=== PATIENT | female | born 1955 | race Caucasian/White ===

== ENCOUNTER 2025-02-05 11:48 | Inpatient (IN) ==
--- NOTE | 2025-02-05 12:09 | Emergency Department Note ---
Impression & Plan Dyspnea on exertion, Transaminitis ED Provider Note HISTORY OF PRESENT ILLNESS: Patient is a 69-year-old female presenting with general malaise and shortness of breath. Patient reports that 2 weeks ago she started feeling very fatigued and rundown. She was seen in the emergency department 4 days ago and diagnosed with what was presumed to be a tickborne illness and started prophylactically on doxycycline. Patient reports she has been taking her medications and not getting any better. She reports that a few days ago she attempted to walk on the treadmill at the gym but became very short of breath and only lasted for about 11 minutes. She reports her heart rate got up into the 130s. States that she gets very short of breath with minimal amounts of exertion. She is not on any anticoagulation or antiplatelet therapy. Denies any DVT or PE history. Denies any recent cough. She reports some subjective fevers at home over the last few days, but has not had any measured fevers like she did a week ago. Denies any abdominal pain, nausea or vomiting. She does report a decreased appetite and has not really had much to eat or drink in the last 3 to 4 days secondary to no appetite. Denies any recent sick contact exposures. She reports that she does have some anterior chest pressure that has been intermittent. Denies any lower extremity edema. Patient is on methotrexate for history of psoriatic arthritis. ROS: as above PHYSICAL EXAM: Constitutional: Patient appears in no acute distress. HENT: Head: Normocephalic and atraumatic. Eyes: EOMI, PERRL Mouth/Throat: Mucous membranes moist. Neck: Trachea midline. Neck supple. Cardiovascular: Tachycardic with regular rhythm. No murmurs, rubs or gallops. Intact distal pulses. Pulmonary/Chest: No respiratory distress. Breath sounds clear and equal bilaterally. No wheezes or rales. Abdominal: Abdomen soft, no tenderness, rebound or guarding. Musculoskeletal: No edema, tenderness or deformity noted. Skin: Warm and dry. No rash, erythema, pallor or cyanosis Psychiatric: Appropriate mood and affect for situation. Neurological: Alert and keenly responsive. CN II-XII grossly intact, moving all extremities equally and fully. MDM: - Vitals signs showed tachycardia - History obtained via patient. History as above. - Chronic conditions affecting care: Psoriatic arthritis - Differential diagnoses include, but are not limited to: Congestive heart failure; acute coronary syndrome; COPD/asthma exacerbation; pulmonary edema; pulmonary embolism; pneumonia; pneumothorax; viral syndrome - Order placed for continuous cardiac monitoring. At this time, monitor showed rate of 92 bpm with normal sinus rhythm, per my interpretation. - External medical records reviewed. Primary care visit note from [facility] visit from today was reviewed. Patient was seen for an ER follow- up after being seen in the ER on 02/01/2025 for fevers, chills and dehydration and chest pain. She was started on doxycycline 100 mg twice daily for presumed tickborne illness. However, it has been 5 days and she is not feeling any better. She still feeling generally ill. Reportedly complaining of dyspnea on exertion and chest pain. Temperature in clinic was 100. She reported that her heart rate was in the 140s at home. Given her reported low blood pressure in clinic which was 88/54 and her heart rate of 116 bpm, they referred her to the emergency department. - EKG image interpreted by myself showed normal sinus rhythm. Rate tachycardic with a rate of 111 bpm. QT 324. No acute ischemic changes. - Laboratory workup interpreted by myself showed normal WBC; normal PT/INR; elevated D dimer (2350); stable electrolytes; transaminitis (AST 105; ALT 124); normal troponin; normal BNP; normal procalcitonin - Lyme negative - CXR image reviewed by myself is negative for pneumonia, per my interpretation - Patient has a history of gastric bypass so she does not take any NSAIDs. She reports her last dose of Tylenol was 2 days ago. However, given her transaminitis, hepatitis panel and Tylenol level was added to the blood work. - Patient given 2L NS in ER and 4 mg IV zofran for nausea that she developed in ER. - CT PE negative for PE or pneumonia. However, noted to have some interlobar septal thickening concerning for atelectasis versus some pulmonary edema. - Discussed results with patient. Unclear etiology for symptoms at this time. However, patient expresses concern that she is feeling just as bad as she did last week and is not getting any better. 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 Will admit to hospital service for further evaluation and management. - Discussion was had with pillowcase turner about patient's case and need for admission - Hospitalist consulted for admission - Patient admitted to [facility] service for further evaluation and management. ASSESSMENT AND PLAN: Diagnosis: Dyspnea on exertion; transaminitis Plan: admit Past Med/Surg History Problem List (Updated 02/05/25 @ 14:35 by Julieta Baez MD) Transaminitis (Acute) Dyspnea on exertion (Acute) Leukopenia (Acute) Transaminitis (Acute) Acute dehydration (Acute) Dizziness (Acute) Acute dyspnea (Acute) Fever (Acute) Dysuria Recurrent UTI Urinary symptom or sign Encounter for pre-operative examination Medical History Raynaud phenomenon History of anesthesia problem hypotension with colonoscopy attributed to propofol per pt, denies additional issues with subsequent surgeries/propofol administration History of GI bleed 2017>FOUND TO BE FROM POLYPS FOUND DURING COLONOSCOPY Hx of seasonal allergies Hyperlipidemia Non-specific colitis HX Hx of colonic polyps Anxiety Psoriatic arthritis Osteoporosis Surgical History S/P panniculectomy History of lumbar laminectomy Hx of laparoscopy EXPLORATORY Hx laparoscopic cholecystectomy History of open reduction and internal fixation (ORIF) procedure RT. WRIST Personal hx of gastric bypass History of esophagogastroduodenoscopy (EGD) Hx of colonoscopy Social History Smoking Status: Former smoker Second Hand Exposure: Yes (HX); Do You Dip or Chew Tobacco: No; Hx Alcohol Use: Yes Hx Substance Use: Yes Last Used Substance Other:: 12/23/22; USES TO HELP WITH SLEEP Preferred Language: Vietnamese Communication Ability: Effective Architect Internship Required: No Beliefs That Will Affect Care: None Current Living Situation: Spouse Feels Safe at Home: Yes Assistive Devices: Glasses Allergies Allergies Allergy/AdvReac Type Severity Reaction Status Date / Time aspirin Allergy Severe Anaphylaxis Verified 01/29/25 13:38 homosalate Allergy FACIAL Verified 01/29/25 13:38 SWELLING NSAIDS (Non-Steroidal Allergy HX GASTRIC Verified 01/29/25 13:38 Anti-Inflamma BYPASS-ADVISED AGAINST TAKING Penicillins Allergy Rash Verified 01/29/25 13:38 thimerosal Allergy CONTACT Verified 01/29/25 13:38 DERMATITIS Home Meds Home Medications Medication Instructions Recorded Confirmed Vitamin D3 1 cap PO HS 12/24/22 02/05/25 cetirizine 10 mg capsule 10 mg PO 12/24/22 02/05/25 folic acid 1 mg tablet 1 mg PO 12/24/22 02/05/25 rosuvastatin 10 mg tablet 10 mg PO 12/24/22 02/05/25 apremilast 30 mg tablet (Otezla) 30 mg PO BID 06/18/24 02/05/25 methotrexate (PF) 15 mg/0.4 mL 15 mg subcut UD 01/29/25 02/05/25 subcutaneous auto-injector ondansetron 4 mg disintegrating 4 mg PO Q8H 01/29/25 02/05/25 tablet methotrexate sodium 2.5 mg tablet 2.5 mg PO DIRECTED 02/01/25 02/05/25 Previous Rx's Medication Instructions Recorded doxycycline hyclate 100 mg tablet 100 mg PO Q12H 10 days #20 tabs 02/01/25 Results & Data (ED) Vital Signs Vital Signs - 24 hr 02/05/25 11:51 02/05/25 12:07 02/05/25 12:07 Temperature 37.5 C Temperature Source Oral Pulse Rate 112 H Pulse Rate [Apical] Respiratory Rate 17 Respiratory Effort / Characteristics Non-Labored Spontaneous Non-Labored Spontaneous SOB on Exertion Respiratory Depth Normal Normal Respiratory Pattern Regular Blood Pressure 124/82 Blood Pressure [Right Arm] Blood Pressure Mean 96 Blood Pressure Mean [Right Arm] Blood Pressure Position Sitting Blood Pressure Position [Right Arm] Pulse Oximetry 98 96 Oxygen Delivery Method Room Air Room Air Room Air Sepsis Recent Fever Within 48 Hours No Sepsis New/Unexplained Change in Mental Status N/A Sepsis Action Taken by Nursing No Action Required 02/05/25 12:07 02/05/25 12:07 02/05/25 12:28 Temperature Temperature Source Pulse Rate 109 H 101 H Pulse Rate [Apical] 107 H Respiratory Rate 20 15 Respiratory Effort / Characteristics Non-Labored Spontaneous Respiratory Depth Normal Respiratory Pattern Regular Blood Pressure Blood Pressure [Right Arm] 107/73 Blood Pressure Mean Blood Pressure Mean [Right Arm] 84 Blood Pressure Position Blood Pressure Position [Right Arm] Semi-fowlers Pulse Oximetry 95 95 Oxygen Delivery Method Room Air Sepsis Recent Fever Within 48 Hours Sepsis New/Unexplained Change in Mental Status Sepsis Action Taken by Nursing 02/05/25 13:25 02/05/25 14:26 Temperature Temperature Source Pulse Rate Pulse Rate [Apical] 90 95 H Respiratory Rate 19 16 Respiratory Effort / Characteristics Non-Labored Spontaneous Respiratory Depth Normal Normal Respiratory Pattern Regular Blood Pressure Blood Pressure [Right Arm] 99/55 L 111/61 Blood Pressure Mean Blood Pressure Mean [Right Arm] 69 77 Blood Pressure Position Blood Pressure Position [Right Arm] Semi-fowlers Semi-fowlers Pulse Oximetry 99 96 Oxygen Delivery Method Room Air Room Air Sepsis Recent Fever Within 48 Hours Sepsis New/Unexplained Change in Mental Status Sepsis Action Taken by Nursing Laboratory Data 02/05/25 12:18 02/05/25 12:18 Lab Results 02/05/25 02/05/25 Range/Units 12:18 12:30 WBC 8.14 (4.8-10.8) K/ul RBC 4.45 (4.20-5.40) M/uL Hgb 13.1 (12.0-16.0) g/dl Hct 39.6 (37.0-47.0) % MCV 89.0 (80.0-100.0) fL MCH 29.4 (25.0-34.0) pg MCHC 33.1 (32.0-36.0) g/dL RDW Std Deviation 44.3 (36.4-46.3) fL RDW Coeff of Agnes 13.6 (11.5-14.5) % Plt Count 231 (130-400) K/uL MPV 10.2 (9.4-12.4) fL Neutrophils % (Manual) 20 % Lymphocytes % (Manual) 16 % Reactive Lymphs % (Man) 56 % Monocytes % (Manual) 4 % Eosinophils % (Manual) 3 % Basophils % (Manual) 1 % Neutrophils # (Manual) 1.63 (1.40-6.50) K/uL Total Absolute Neuts 1.63 (1.4-6.5) K/uL Lymphocytes # (Manual) 1.30 (1.2-3.4) K/uL Reactive Lymphs # 4.56 K/uL Total Abs Lymphocytes 5.86 H (1.2-3.4) K/uL Monocytes # (Manual) 0.33 (0.11-0.59) K/uL Eosinophils # (Manual) 0.24 (0-0.50) K/uL Basophils # (Manual) 0.08 (0-0.2) K/uL Blood Smear Review Toxic Vacuolation 1+ PT 11.5 (9.0-12.0) Seconds INR 1.1 (0.9-1.1) D-Dimer 2350 H* (0-500) ug/L FEU Sodium 136 (136-145) mmol/L Potassium 3.5 (3.5-5.1) mmol/L Chloride 105 (98-107) mmol/L Carbon Dioxide 25 (21-32) mmol/L Anion Gap 6 (3-11) BUN 12 (6-23) mg/dl Creatinine 0.77 (0.6-1.2) mg/dl Est Cr Clr Drug Dosing 48.4 ml/min eGFR 84.49 BUN/Creatinine Ratio 15.6 (10-20) Glucose 104 H (70-99(Fasting)) mg/dl Lactate 1.8 (0.4-2.0) mmol/L Calcium 8.8 (8.6-10.3) mg/dl Magnesium 1.8 (1.7-2.4) mg/dl Total Bilirubin 0.5 (0.2-1.0) mg/dl AST 105 H (13-39) U/L ALT 124 H (7-52) U/L Alkaline Phosphatase 75 (34-104) U/L Troponin I High Sens 4.1 (0-14) pg/ml B-Natriuretic Peptide 20 (0-100) pg/ml Total Protein 7.2 (6.0-8.3) gm/dl Albumin 3.7 (3.4-5.0) gm/dl Globulin 3.5 (2.5-4.0) gm/dl Albumin/Globulin Ratio 1.1 (0.9-2) Procalcitonin 0.26 (0-0.5) ng/ml Anaplasma Smear See Comment Babesia Smear See Comment Lyme Disease Screen Negative (Negative) Administered Medications Discontinued Medications Sodium Chloride (Nss) 2,000 mls @ 999 mls/hr IV .Q2H1M ONE Stop: 02/05/25 14:42 Last Admin: 02/05/25 12:49 Dose: 999 mls/hr Documented By: VIRGINIA Ioversol (Optiray 320 125ml) 112 ml IV ONCE ONE Stop: 02/05/25 13:57 Last Admin: 02/05/25 13:56 Dose: 112 ml Documented By: MATTEO Ondansetron HCl (Ondansetron Inj 2 Mg/Ml 2 Ml Vial) 4 mg IV NOW STA Stop: 02/05/25 12:43 Last Admin: 02/05/25 12:46 Dose: 4 mg Documented By: VIRGINIA Imaging Data Radiologist's Impression: Chest X-Ray 02/05/25 12:01 XR chest 1V portable CLINICAL HISTORY: Dyspnea COMPARISON STUDY: 02/01/2025 FINDINGS: Heart size and pulmonary vasculature are normal. Stable mild elevation of the right hemidiaphragm. No consolidation or pleural effusion. No pneumothorax. IMPRESSION: No acute findings. ACT 112: Negative or not required by law. Electronically signed by: August Back M.D. 02/05/2025 12:33 PM Chest CTA 02/05/25 13:27 CT angio chest PE protocol CT DOSE: 775.91 mGy.cm HISTORY: 69 years-old Female with PE. Acute shortness of breath TECHNIQUE: Multiple CTA images of the chest were obtained after the intravenous administration of 112 ml Optiray. Coronal and sagittal MIPS were obtained from the axial data set and were submitted for review. All measurements were obtained according to NASCET criteria. A dose lowering technique was utilized adhering to the principles of ALARA. COMPARISON: Chest radiograph same day FINDINGS: CTA: The heart is upper limits of normal in size. Mild coronary artery calcifications. No pericardial effusion. No thoracic aortic aneurysm or dissection. No pulmonary emboli identified. CT CHEST: No thyroid nodule. Subcentimeter mediastinal and hilar lymph nodes are likely physiologic. No pneumothorax, pleural effusion, or focal airspace consolidation. Intralobular septal thickening with mild intermixed groundglass densities. 5 mm fissural nodule on image 127 series 4 within the right midlung, likely a lymph node. Hepatic steatosis. Cholecystectomy with postoperative changes of the stomach. No acute fracture. IMPRESSION: 1. No pulmonary emboli. 2. No lobar airspace consolidation typical for pneumonia. No pleural effusion. 3. Intralobular septal thickening with intermixed bilateral groundglass densities suggestive of atelectasis. A component of mild interstitial pulmonary edema may also be present. 4. Hepatic steatosis. ACT 112: Negative or not required by law. The above report was generated using voice recognition software. It may contain grammatical, syntax or spelling errors. Electronically signed by: Chaz Villalobos M.D. 02/05/2025 2:13 PM Discharge Plan Visit Data Chief Complaint: Tachycardia Stated Complaint: TACHYCARDIA,TEMP 100,LOW BP,DOC REF ED Provider: Julieta Baez Discharge Problem: Dyspnea on exertion, Transaminitis Condition: Fair Forms Stand Alone Forms: [facility] [employer] Prescriptions Prescriptions: No Action Otezla 30 mg tablet 30 mg PO BID methotrexate (PF) 15 mg/0.4 mL auto-injector 15 mg subcut UD Rx Instructions: original:Once per week 02/05- No fill history unable to verify ondansetron 4 mg tablet,disintegrating 4 mg PO Q8H Rx Instructions: last filled 10/09/24 folic acid 1 mg tablet 1 mg PO HS rosuvastatin 10 mg tablet 10 mg PO UD Rx Instructions: original:10 mg po hs 02/05- No fill history available unable to verify cetirizine 10 mg Capsule 10 mg PO HS Rx Instructions: 02/05- otc unable to verify Vitamin D3 1 cap PO HS Rx Instructions: 02/05- otc unable to verify methotrexate sodium 2.5 mg tablet 2.5 mg PO DIRECTED Rx Instructions: filled 01/25 90 day supply #65 doxycycline hyclate 100 mg tablet 100 mg PO Q12H 10 Days Qty: 20 0RF Referrals Referrals: Kristopher Woody MD [Primary Care Provider] -
[2025-02-05 12:32] LABS: Hematocrit (blood only) 39.6 % (37.0-47.0); Hemoglobin 13.1 g/dl (12.0-16.0); Mean Corpuscular Hemoglobin 29.4 pg (25.0-34.0); Mean Corpuscular Hgb Conc 33.1 g/dL (32.0-36.0); Mean Platelet Volume 10.2 fL (9.4-12.4); Platelet Count 231 K/uL (130-400); RDW Coefficient of Variation 13.6 % (11.5-14.5); RDW Standard Deviation 44.3 fL (36.4-46.3); Red Blood Count 4.45 M/uL (4.20-5.40); White Blood Count 8.14 K/ul (4.8-10.8)
--- NOTE | 2025-02-05 12:35 | XRay Report ---
XR chest 1V portable CLINICAL HISTORY: Dyspnea COMPARISON STUDY: 02/01/2025 FINDINGS: Heart size and pulmonary vasculature are normal. Stable mild elevation of the right hemidia phragm. No consolidation or pleural effusion. No pneumothorax. IMPRESSION: No acute findings. ACT 112: Negative or not required by law. Electronically signed by: August Back M.D. 02/05/2025 12:33 PM
[2025-02-05] MEDS: ONDANSETRON INJ 2 MG/ML 2 ML VIAL IV STA (12:46)
[2025-02-05] MEDS: SODIUM CHLORIDE 0.9% 2,000 ML IV ONE (12:49)
[2025-02-05 12:53] LABS: Albumin Globulin Ratio 1.1 (0.9-2); BUN Creatinine Ratio 15.6 (10-20); Bilirubin,Total 0.5 mg/dl (0.2-1.0); Calcium 8.8 mg/dl (8.6-10.3); Creatinine Clr Calc Pharmacy 48.4 ml/min; Globulin 3.5 gm/dl (2.5-4.0); Magnesium 1.8 mg/dl (1.7-2.4); Potassium 3.5 mmol/L (3.5-5.1); Total Protein 7.2 gm/dl (6.0-8.3)
[2025-02-05 12:59] LABS: Procalcitonin 0.26 ng/ml (0-0.5); Troponin I High Sensitivity 4.1 pg/ml (0-14)
[2025-02-05 13:11] LABS: INR 1.1 (0.9-1.1); Prothrombin Time 11.5 Seconds (9.0-12.0)
[2025-02-05 13:23] LABS: D Dimer 2350 ug/L FEU (0-500)
[2025-02-05 13:24] LABS: Lyme Screen Rflx Confirmation Negative (Negative)
[2025-02-05 13:45] LABS: ALC (manual) 5.86 K/uL (1.2-3.4); ANC (manual) 1.63 K/uL (1.4-6.5); Basophils # (manual) 0.08 K/uL (0-0.2); Basophils % (manual) 1 %; Eosinophils # (manual) 0.24 K/uL (0-0.50); Eosinophils % (manual) 3 %; Lymphocytes % (manual) 16 %; Monocytes # (manual) 0.33 K/uL (0.11-0.59); Monocytes % (manual) 4 %; Neutrophils # (manual) 1.63 K/uL (1.40-6.50); Neutrophils % (manual) 20 %; Reactive Lymphocytes # (manual) 4.56 K/uL; Reactive Lymphocytes % (manual) 56 %; Toxic Vacuolation 1+
[2025-02-05] MEDS: OPTIRAY 320 125ml IV ONE (13:56)
--- NOTE | 2025-02-05 14:14 | CT Scan Report ---
CT angio chest PE protocol CT DOSE: 775.91 mGy.cm HISTORY: 69 years-old Female with PE. Acute shortness of breath TECHNIQUE: Multiple CTA images of the chest were obtained after the intravenous administration of 112 ml Optiray. Coronal and sagittal MIPS were obtained from the axial data set and were submitted for review. All measurements were obtained according to NASCET criteria. A dose lowering technique was u tilized adhering to the principles of ALARA. COMPARISON: Chest radiograph same day FINDINGS: CTA: The heart is upper limits of normal in size. Mild coronary artery calcifications. No pericardial effu fransisco. No thoracic aortic aneurysm or dissection. No pulmonary emboli identified. CT CHEST: No thyroid nodule. Subcentimeter mediastinal and hilar lymph nodes are likely physiologic. No pneumot horax, pleural effusion, or focal airspace consolidation. Intralobular septal thickening with mild in termixed groundglass densities. 5 mm fissural nodule on image 127 series 4 within the right midlung, likely a lymph node. Hepatic steatosis. Cholecystectomy with postoperative changes of the stomach. No acute fracture. IMPRESSION: 1. No pulmonary emboli. 2. No lobar airspace consolidation typical for pneumonia. No pleural effusion. 3. Intralobular septal thickening with intermixed bilateral groundglass densities suggestive of atele ctasis. A component of mild interstitial pulmonary edema may also be present. 4. Hepatic steatosis. ACT 112: Negative or not required by law. The above report was generated using voice recognition software. It may contain grammatical, syntax o r spelling errors. Electronically signed by: Chaz Villalobos M.D. 02/05/2025 2:13 PM
--- NOTE | 2025-02-05 15:08 | History & Physical Report ---
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 Previously seen in ED on 02/01/25 for the above complaints. Other than a mild transaminitis her workup was grossly unremarkable. Tickborne illness panel at that time was negative except for A. phagocytophilum DNA testing and Babesia microti DNA PCR testing, both of which are still pending as of today. Patient was empirically started on oral doxycycline upon discharge from the ED at that time pending those DNA/PCR results. #Intermittent fevers #Fatigue Tickborne testing still pending as per above Elevated total absolute lymphocytes on CBC w/diff --> check monospot test, ? possibly elevated from underlying RA Peripheral smear: lymphocytosis with frequent large granular lymphocytes, favors reactive etiology UA negative CK WNL TSH WNL Procal, lactate WNL Check blood cxs Check monospot test Continue doxy for now pending full tickborne w/u results Checking TTE as per below #Dyspnea on exertion #Chest pain --> mostly with exertion and deep inspiration D-dimer 2350 Chest CTA: no PE or PNA, atelectasis Trop x 1 negative BNP 20 Check BLE venous doppler US Check TTE #Transaminitis AST 105, ALT 124 Previously AST 67 and ALT 90 on 02/01 T. bili, alk phos WNL Chest CTA: hepatic steatosis Check liver US Hepatitis panel pending May warrant CTAP eval pending liver US results #Tachycardia Pt reports HR trend up into the upper 100s w/ minimal exertion EKG reviewed --> sinus tach, possible LA enlargement Check TTE as per above Monitor on tele May need to consider cards eval pending above w/u #Hypotension Check orthostatics Hold off on IVF for now ? underlying adrenal insufficiency contributing to sxs Check AM cortisol, ACTH #Rheumatoid arthritis Hold Otezla, methotrexate for now F/w [facility] - [facility] #HLD Continue statin DVT Prophylaxis: SCDs/TEDs, heparin PCP: Kristopher Woody MD Disposition: Admit to med/tele Patient seen in collaboration with Dr. Valenzuela. Please see addendum. I spent a total of 65 minutes coordinating, documenting, and providing care for this patient excluding time spent in the performance of separately billed services or time spent by another provider/QHP. This included personally reviewing all current laboratories and imaging studies, medical reconciliation, outpatient chart review and discussion with specialists. This chart was completed in part utilizing Speech Voice Recognition Software. Grammatical errors, random word insertions, pronoun errors, and incomplete sentences are an occasional consequence of this system due to software limita tions, ambient noise, and hardware issues. Any formal questions or concerns about the content, text, or information contained within the body of this dictation should be directly addressed to the provider for clarification. History of Present Illness Chief Complaint: Referred by PCP: SOB w/ exertion, tachycardia, intermittent fevers Primary Care Provider: Kristopher Woody MD Patient is a 69-year-old female with past medical history significant for HLD, Raynaud's phenomenon, vitamin D deficiency, history of recurrent UTIs, urinary incontinence but H-related osteoporosis, psoriatic arthritis, history of GI bleed, depression/anxiety, history of thyroid nodule, history of tobacco use and other problems as below who presented to the ED for evaluation of multiple complaints including fatigue, intermittent fevers with rigors, tachycardia, intermittent headaches and LÓPEZ. Previously seen and evaluated in [place] ED on 02/01/25 for the above complaints as well. Other than a mild transaminitis her workup was grossly unremarkable. CXR at the time did raise concern for a raised right hemidiaphragm obscuring the right costophrenic recess however this was thought to be in the setting of atelectasis. Tickborne illness panel at that time was negative except for A. phagocytophilum DNA testing and Babesia microti DNA PCR testing, both of which are still pending as of today. Patient was empirically started on oral doxycycline upon discharge from the ED at that time pending her additional DNA and PCR testing results. Patient admits to minimal if any improvement in her symptoms since being on the doxycycline. She mentions that she started with periods of fatigue and "feeling rundown" earlier this month around the . Since then, she has also experienced bouts of tachycardia with minimal exertion, intermittent headaches, intermittent fevers (Tmax 101.6F orally - last recorded fever on 02/01) with chills/rigors, intermittent myalgias, SOB upon exertion and poor appetite. She mentions that she was cooking dinner last evening when she suddenly started to develop SOB, midsternal chest pain and diaphoresis. This resolved with rest. She does endorse some midsternal chest pain upon inspiration but otherwise has had no further bouts of diaphoresis associated with it. No cigarette use. Nightly medical marijuana use - 5mg gummies (usually takes half) to help her sleep. Occasional alcohol use. On methotrexate and Otezla for RA. Last dose of methotrexate was given on 01/27/25. Follows with [facility] - [facility]. [facility]. No definitive tick bite that she can recall. Denies any sore throat or cough. History of recurrent UTIs. Urine appears dark in coloration but no dysuria or hematuria. Allergies Allergy/AdvReac Type Severity Reaction Status Date / Time aspirin Allergy Severe Anaphylaxis Verified 01/29/25 13:38 homosalate Allergy FACIAL Verified 01/29/25 13:38 SWELLING NSAIDS (Non-Steroidal Allergy HX GASTRIC Verified 01/29/25 13:38 Anti-Inflamma BYPASS-ADVISED AGAINST TAKING Penicillins Allergy Rash Verified 01/29/25 13:38 thimerosal Allergy CONTACT Verified 01/29/25 13:38 DERMATITIS Home Medications Medication Instructions Recorded Confirmed Type Vitamin D3 1 cap PO HS 12/24/22 02/05/25 History cetirizine 10 mg capsule 10 mg PO QAM 12/24/22 02/05/25 History folic acid 1 mg tablet 1 mg PO HS 12/24/22 02/05/25 History rosuvastatin 10 mg tablet 10 mg PO HS 12/24/22 02/05/25 History apremilast 30 mg tablet (Otezla) 30 mg PO BID 06/18/24 02/05/25 History methotrexate sodium 2.5 mg tablet 15 mg PO .WEEKLY 02/01/25 02/05/25 History doxycycline hyclate 100 mg tablet 100 mg PO BID 02/05/25 02/05/25 History Past Med/Surg History Problem List Hypotension Chest pain Fatigue Tachycardia Transaminitis (Acute) Dyspnea on exertion (Acute) Leukopenia (Acute) Transaminitis (Acute) Acute dehydration (Acute) Dizziness (Acute) Acute dyspnea (Acute) Fever (Acute) Dysuria Recurrent UTI Urinary symptom or sign Encounter for pre-operative examination Medical History Raynaud phenomenon History of anesthesia problem hypotension with colonoscopy attributed to propofol per pt, denies additional issues with subsequent surgeries/propofol administration History of GI bleed 2017>FOUND TO BE FROM POLYPS FOUND DURING COLONOSCOPY Hx of seasonal allergies Hyperlipidemia Non-specific colitis HX Hx of colonic polyps Anxiety Psoriatic arthritis Osteoporosis Surgical History S/P panniculectomy History of lumbar laminectomy Hx of laparoscopy EXPLORATORY Hx laparoscopic cholecystectomy History of open reduction and internal fixation (ORIF) procedure RT. WRIST Personal hx of gastric bypass History of esophagogastroduodenoscopy (EGD) Hx of colonoscopy Social History Smoking Status: Former smoker Second Hand Exposure: Yes (HX); Do You Dip or Chew Tobacco: No; Hx Alcohol Use: Yes Hx Substance Use: Yes Last Used Substance Other:: 12/23/22; USES TO HELP WITH SLEEP Preferred Language: Burundian Communication Ability: Effective Lay Up Operator Required: No Beliefs That Will Affect Care: None Current Living Situation: Spouse Feels Safe at Home: Yes Assistive Devices: Glasses Review of Systems Review of Systems: At least ten systems reviewed and negative, except as noted in the HPI. Physical Exam Physical Exam: Please refer to Dr. Valenzuela's addendum for physical examination findings. Results & Data Results & Data Vital Signs (Past 12 Hours) Vital Signs Temp Pulse Pulse Resp BP BP Pulse Ox 02/05/25 14:26 95 H 16 111/61 96 02/05/25 13:25 90 19 99/55 L 99 02/05/25 12:28 101 H 02/05/25 12:07 109 H 15 95 02/05/25 12:07 107 H 20 107/73 95 02/05/25 12:07 96 02/05/25 12:07 02/05/25 11:51 37.5 C 112 H 17 124/82 98 O2 Del Method 02/05/25 14:26 Room Air 02/05/25 13:25 Room Air 02/05/25 12:28 02/05/25 12:07 Room Air 02/05/25 12:07 02/05/25 12:07 Room Air 02/05/25 12:07 Room Air 02/05/25 11:51 Room Air Laboratory Results Short CBC 02/05/25 Range/Units 12:18 WBC 8.14 (4.8-10.8) K/ul Hgb 13.1 (12.0-16.0) g/dl Hct 39.6 (37.0-47.0) % Plt Count 231 (130-400) K/uL BMP 02/05/25 12:18 Sodium 136 Potassium 3.5 Chloride 105 Carbon Dioxide 25 BUN 12 Creatinine 0.77 Glucose 104 H Calcium 8.8 Liver Function 02/05/25 Range/Units 12:18 Total Bilirubin 0.5 (0.2-1.0) mg/dl AST 105 H (13-39) U/L ALT 124 H (7-52) U/L Alkaline Phosphatase 75 (34-104) U/L Albumin 3.7 (3.4-5.0) gm/dl Diagnostic Findings Chest X-Ray 02/05/25 12:01 XR chest 1V portable CLINICAL HISTORY: Dyspnea COMPARISON STUDY: 02/01/2025 FINDINGS: Heart size and pulmonary vasculature are normal. Stable mild elevation of the right hemidiaphragm. No consolidation or pleural effusion. No pneumothorax. IMPRESSION: No acute findings. ACT 112: Negative or not required by law. Electronically signed by: August Back M.D. 02/05/2025 12:33 PM Chest CTA 02/05/25 13:27 CT angio chest PE protocol CT DOSE: 775.91 mGy.cm HISTORY: 69 years-old Female with PE. Acute shortness of breath TECHNIQUE: Multiple CTA images of the chest were obtained after the intravenous administration of 112 ml Optiray. Coronal and sagittal MIPS were obtained from the axial data set and were submitted for review. All measurements were obtained according to NASCET criteria. A dose lowering technique was utilized adhering to the principles of ALARA. COMPARISON: Chest radiograph same day FINDINGS: CTA: The heart is upper limits of normal in size. Mild coronary artery calcifications. No pericardial effusion. No thoracic aortic aneurysm or dissection. No pulmonary emboli identified. CT CHEST: No thyroid nodule. Subcentimeter mediastinal and hilar lymph nodes are likely physiologic. No pneumothorax, pleural effusion, or focal airspace consolidation. Intralobular septal thickening with mild intermixed groundglass densities. 5 mm fissural nodule on image 127 series 4 within the right midlung, likely a lymph node. Hepatic steatosis. Cholecystectomy with postoperative changes of the stomach. No acute fracture. IMPRESSION: 1. No pulmonary emboli. 2. No lobar airspace consolidation typical for pneumonia. No pleural effusion. 3. Intralobular septal thickening with intermixed bilateral groundglass densities suggestive of atelectasis. A component of mild interstitial pulmonary edema may also be present. 4. Hepatic steatosis. ACT 112: Negative or not required by law. The above report was generated using voice recognition software. It may contain grammatical, syntax or spelling errors. Electronically signed by: Chaz Villalobos M.D. 02/05/2025 2:13 PM Medications Administered Discontinued Medications Sodium Chloride (Nss) 2,000 mls @ 999 mls/hr IV .Q2H1M ONE Stop: 02/05/25 14:42 Last Infusion: 02/05/25 15:09 Dose: Infused Documented By: Admin: 02/05/25 12:49 Dose: 999 mls/hr Documented By: [place] Ioversol (Optiray 320 125ml) 112 ml IV ONCE ONE Stop: 02/05/25 13:57 Last Admin: 02/05/25 13:56 Dose: 112 ml Documented By: MATTEO Ondansetron HCl (Ondansetron Inj 2 Mg/Ml 2 Ml Vial) 4 mg IV NOW STA Stop: 02/05/25 12:43 Last Admin: 02/05/25 12:46 Dose: 4 mg Documented By: [place] Code Status & VTE Plan Code Status FULL CODE Supervising Physician Co-Signing Physician Notes 69-year-old lady with PMH of HLD, Raynaud's phenomena, vitamin D deficiency, recurrent UTI, urinary incontinence, osteoporosis, psoriatic arthritis recently restarted on methotrexate, GI bleed, depression, anxiety, thyroid nodule presents to the ED for evaluation of fatigue, intermittent fevers with rigors, tachycardia, dyspnea on minimal exertion, intermittent headaches. Patient reports, such symptoms ongoing since about second week of January, was evaluated in the ED about 4 days ago and was put on doxycycline for concern of tickborne illness. Patient states that she continues to feel worse, does still have low-grade fever on and off and hence presented to the ED. Labs reviewed, CBC with lymphocytosis, D-dimer elevated, BMP WNL, LFT shows uptrend compared to LFT 4 days ago. Anaplasma/Babesia/Lyme screen are negative. D-dimer was elevated. CXR and CT chest with no acute finding. BNP normal. Transaminitis: Will get liver ultrasound, hepatitis panel. Elevated D-dimer: CTA chest negative for PE. Will get BLE venous Doppler. Concern for tickborne illness: Patient was started on doxycycline about 4 days ago, patient does not have much improvement in her fever or fatigability. Repeat tickborne illness screen was negative. Plan to continue until Anaplasma and Babesia DNA PCR are resulted. On exam: GENERAL: Alert and oriented x3. NAD, on RA. HEENT: No pallor, no icterus. Pupils equal, round and reactive to light. Oral mucosa moist. NECK: No JVD, no neck masses. HEART: S1 and S2 heard. Regular rate and rhythm. No murmur, no gallop. RESPIRATORY SYSTEM: Normal AP diameter. No accessory muscle use. No wheezing, no crackles. ABDOMEN: Soft, bowel sounds present, nontender, no distention. CENTRAL NERVOUS SYSTEM: No facial droop. Speech is clear. Obeys simple c ommands. Moves extremities. EXTREMITIES: No edema, no erythema seen. Time spent independently: 27 minutes I have seen and examined the patient and have discussed the case with the provider above. I agree with the assessment and plan as stated. Addendum: Hepatitis B surface antigen was positive, will consult GI. Follow final hepatitis panel results. (1) Fever Fever type: unspecified Qualified Code(s): R50.9 - Fever, unspecified (2) Fatigue Fatigue type: unspecified Qualified Code(s): R53.83 - Other fatigue (4) Chest pain Chest pain type: unspecified Qualified Code(s): R07.9 - Chest pain, unspecified (7) Hypotension Hypotension type: unspecified hypotension type Qualified Code(s): I95.9 - Hypotension, unspecified
[2025-02-05 15:49] LABS: Appearance Urine Clear (Clear); Bacteria Urine Automated None Seen (None Seen); Bilirubin Urine Negative (Negative); Blood Urine Negative (Negative); Cast Urine Automated 0-2 /lpf (0-2); Color Urine Yellow; Epithelial Cell Urine Auto 0-2 /hpf (0-2); Glucose Urine UA Negative (Negative); Ketones Urine Negative (Negative); Leukocyte Esterase Urine Negative (Negative); Nitrite Urine Negative (Negative); Protein Urine Trace (Negative); RBC Urine Automated 0-2 /hpf (0-2); Specific Gravity Urine > 1.045 (1.000-1.030); Urobilinogen Urine Negative (Negative); WBC Urine Automated 0-5 /hpf (0-5); pH Urine 6.5 (4.5-7.5)
[2025-02-05 15:59] LABS: Thyroid Stimulating Hormone 2.915 uIu/ml (0.300-4.500)
[2025-02-05 16:38] LABS: Hep B Surface Ag with confirm Prelim Positive (Negative)
--- NOTE | 2025-02-05 16:42 | Ultrasound Report ---
EXAM: Ultrasound liver CLINICAL HISTORY: Elevated liver tests TECHNIQUE: Ultrasound interrogation of the abdomen was performed with grayscale and color Doppler imaging. PRIORS: None FINDINGS: The liver is normal in size and configuration. Echogenic liver parenchyma demonstrated. No intrahepatic ductal dilatation. No hepatic mass. Portal vein is patent. Gallbladder surgically absent. The common bile duct measures 9 mm, within normal limits allowing for cholecystectomy. No ascites Right kidney demonstrates no hydronephrosis. IMPRESSION: 1. Echogenic appearance of the liver parenchyma favoring fatty infiltration and/or underlying hepatic parenchymal disease. Electronically signed by Simona Peterson 02-05-2025 4:42 PM
[2025-02-05 16:45] LABS: Hep C Ab Rflx HepCQuant RNA Negative (Negative)
--- NOTE | 2025-02-05 17:09 | Ultrasound Report ---
EXAMINATION: Ultrasound venous Doppler lower extremity bilateral CLINICAL HISTORY: Elevated D-dimer, dyspnea. PRIORS: None TECHNIQUE: Ultrasound interrogation of the deep venous structures was performed with grayscale, color Doppler, compression and augmentation. FINDINGS: The bilateral common femoral, superficial femoral, saphenous, popliteal and tibial veins demonstrate normal compressibility, frequency and augmentation. Right popliteal cyst measuring 1.7 x 2.6 x 6 cm. IMPRESSION: No sonographic evidence of deep venous thrombosis in the bilateral lower extremities. Electronically signed by Simona Peterson 02-05-2025 5:09 PM
[2025-02-05 18:00] LABS: Monotest Negative (Negative)
[2025-02-05] MEDS ORDERED: POLYETHYLENE (MIRALAX) 17 GM PACK PO PRN (18:06)
[2025-02-05] MEDS ORDERED: ACETAMINOPHEN 325 MG TAB PO PRN (18:06)
[2025-02-05] MEDS ORDERED: MAGNESIUM HYDROXIDE SUSP 30 ML UDC PO PRN (18:06)
[2025-02-05 18:41] LABS: EBV Early Antigen IgG Ab Positive (Negative); EBV Early Antigen IgG Quant > 150.0 U/mL (< 9.0); EBV Nuclear Antigen IgG Ab Positive; EBV Nuclear Antigen IgG Quant > 600.0 U/mL (< 18.0)
[2025-02-05] MEDS ORDERED: MELATONIN 3 MG TAB PO PRN (21:20)
[2025-02-05] MEDS: HEPARIN SOD 5,000 UNIT/0.5 ML VIAL SQ SCH (21:29)
[2025-02-05] MEDS: ROSUVASTATIN CALCIUM 10 MG TAB PO SCH (21:29)
[2025-02-05] MEDS: FOLIC ACID 1 MG TAB PO SCH (21:29)
[2025-02-05] MEDS: DOXYCYCLINE HYCLATE 100 MG CAP PO SCH (21:29)
[2025-02-05] MEDS: CHOLECALCIFEROL 25 MCG (1000 UNITS) TAB PO SCH (21:29)
[2025-02-06] MEDS: LORazepam 0.5 MG TAB PO STA (02:09)
[2025-02-06] MEDS: ALBUMIN 25% 12.5 GM/50 ML VIAL IV ONE (06:01)
[2025-02-06 07:36] LABS: Hematocrit (blood only) 31.4 % (37.0-47.0); Hemoglobin 10.7 g/dl (12.0-16.0); Mean Corpuscular Hemoglobin 30.2 pg (25.0-34.0); Mean Corpuscular Hgb Conc 34.1 g/dL (32.0-36.0); Mean Corpuscular Volume 88.7 fL (80.0-100.0); Mean Platelet Volume 10.2 fL (9.4-12.4); Platelet Count 201 K/uL (130-400); RDW Coefficient of Variation 13.6 % (11.5-14.5); RDW Standard Deviation 44.5 fL (36.4-46.3); Red Blood Count 3.54 M/uL (4.20-5.40); White Blood Count 6.26 K/ul (4.8-10.8)
[2025-02-06 07:53] LABS: Albumin Globulin Ratio 1.2 (0.9-2); BUN Creatinine Ratio 12.7 (10-20); Bilirubin,Total 0.5 mg/dl (0.2-1.0); Creatinine Clr Calc Pharmacy 88.4 ml/min; Globulin 2.8 gm/dl (2.5-4.0); Magnesium 1.8 mg/dl (1.7-2.4); Phosphorus 3.3 mg/dl (2.5-4.9); Potassium 3.8 mmol/L (3.5-5.1); Total Protein 6.2 gm/dl (6.0-8.3)
[2025-02-06] MEDS: CETIRIZINE HCL 10 MG TABLET PO SCH (07:53)
[2025-02-06 08:20] LABS: ALC (manual) 4.32 K/uL (1.2-3.4); Basophils # (manual) 0.13 K/uL (0-0.2); Basophils % (manual) 2 %; Eosinophils # (manual) 0.19 K/uL (0-0.50); Eosinophils % (manual) 3 %; Lymphocytes # (manual) 1.69 K/uL (1.2-3.4); Lymphocytes % (manual) 27 %; Monocytes # (manual) 0.13 K/uL (0.11-0.59); Monocytes % (manual) 2 %; Neutrophils % (manual) 24 %; Reactive Lymphocytes # (manual) 2.63 K/uL; Reactive Lymphocytes % (manual) 42 %
--- NOTE | 2025-02-06 10:53 | Gastrointestinal Consultation ---
Date of Consultation February 06, 2025 Assessment & Plan (1) Transaminitis: Patient was found to have a preliminary positive Hep B surface antigen and a slight rise in LFTs. Her transaminases do seem to be trending downward. - would await the official reporting of the Hep B testing as well as pending hepatitis panel. - continue to trend LFTs. - check a Hep B PCR DNA quantitative. Supervising Physician Co-Signing Physician Notes The patient was seen and examined. Hospital labs, data, records and imaging reviewed at length. The case was discussed with the GI physicians certified surgical tech/first assistant and I agree with his assessment and plan as outlined above. I suspect the patient's positive surface antigen is a false positive in the absence of any significant risk factors or exposure risks. The remainder of the hepatitis panel is still pending at the time of this consultation. I suspect that this will be unremarkable. Typically patients exposed to hepatitis B have a 95% chance of developing immunity on their own without further medical treatment. If for some reason the patient does have chronic hepatitis B and does not clear the virus then oral tenofovir would be advised and the patient should be surveilled with ultrasound twice yearly and alpha-fetoprotein testing annually. The patient's abnormal liver function test most likely represent a component of fatty liver disease which is corroborated by ultrasound rather than any ongoing inflammatory process from hepatitis B. We will follow-up with the lab work and make recommendations as needed. 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 She had been seen for these complaints in the ED last week and was given an empirc treatment of doxycycline for suspected tickborne illness. She was not seeing benefit with this and felt she was getting worse which lead to repeat ED evaluation. GI was asked to see as she had some slight elevation in her LFTs and a preliminary positive hep B surface antigen. she admits to a few glasses of wine a week. no IV drug use. no jaundice, itching. She had dark urine once this week, but it had then cleared up. The remainder of the GI ROS were unremarkable. 02/01/25 AST 67, ALT 90, rest of LFTs unremarkable. 02/05/25 AST 105, ALT 124, rest of LFTs unremarkable. EBV suggestive of past infection. Hep C not detected. 02/06/25 AST 69, ALT 85, rest of LFTs unremarkable. 02/05/25 Liver US - Echogenic appearance of the liver parenchyma favoring fatty infiltration and/or underlying hepatic parenchymal disease. Allergies Allergy/AdvReac Type Severity Reaction Status Date / Time aspirin Allergy Severe Anaphylaxis Verified 01/29/25 13:38 homosalate Allergy FACIAL Verified 01/29/25 13:38 SWELLING NSAIDS (Non-Steroidal Allergy HX GASTRIC Verified 01/29/25 13:38 Anti-Inflamma BYPASS-ADVISED AGAINST TAKING Penicillins Allergy Rash Verified 01/29/25 13:38 thimerosal Allergy CONTACT Verified 01/29/25 13:38 DERMATITIS Home Medications Medication Instructions Recorded Confirmed Type Vitamin D3 1 cap PO HS 12/24/22 02/05/25 History cetirizine 10 mg capsule 10 mg PO QAM 12/24/22 02/05/25 History folic acid 1 mg tablet 1 mg PO HS 12/24/22 02/05/25 History rosuvastatin 10 mg tablet 10 mg PO HS 12/24/22 02/05/25 History apremilast 30 mg tablet (Otezla) 30 mg PO BID 06/18/24 02/05/25 History methotrexate sodium 2.5 mg tablet 15 mg PO .WEEKLY 02/01/25 02/05/25 History doxycycline hyclate 100 mg tablet 100 mg PO BID 02/05/25 02/05/25 History Patient History Medical History Raynaud phenomenon History of anesthesia problem hypotension with colonoscopy attributed to propofol per pt, denies additional issues with subsequent surgeries/propofol administration History of GI bleed 2016>FOUND TO BE FROM POLYPS FOUND DURING COLONOSCOPY Hx of seasonal allergies Hyperlipidemia Non-specific colitis HX Hx of colonic polyps Anxiety Psoriatic arthritis Osteoporosis Surgical History S/P panniculectomy History of lumbar laminectomy Hx of laparoscopy EXPLORATORY Hx laparoscopic cholecystectomy History of open reduction and internal fixation (ORIF) procedure RT. WRIST Personal hx of gastric bypass History of esophagogastroduodenoscopy (EGD) Hx of colonoscopy Social History Smoking Status: Former smoker Tobacco Type: Cigarettes Cigarettes Per Day: .5 pack; Second Hand Exposure: Yes (HX); Do You Dip or Chew Tobacco: No; Hx Alcohol Use: Yes Alcohol type: wine Hx Substance Use: Yes Last Used Substance Other:: 02/04 HS Preferred Language: Hungarian Communication Ability: Effective Blocker And Polisher Gold Wheel Required: No Beliefs That Will Affect Care: None Current Living Situation: Spouse Current Living Situation Comment: home with . patient is primary caregiver for self and . Feels Safe at Home: Yes Assistive Devices: None Review of Systems Review of Systems: All systems reviewed & are unremarkable except as noted in HPI & below Physical Exam Constitutional: WD/WN, vitals as above Respiratory: normal respiratory effort, lungs clear to auscultation Cardiovascular: Rate/Rhythm: regular rate and regular rhythm Gastrointestinal (Abdomen): normal bowel sounds, soft, nontender, no hepatosplenomegaly Psychiatric: Orientation: alert and oriented x 3 Affect: euthymic affect Results & Data Vital Signs (Past 12 Hours) Vital Signs Temp Pulse Pulse Resp BP BP Pulse Ox 02/06/25 09:27 02/06/25 07:23 98.4 F 89 18 113/78 93 02/06/25 05:45 93 H 02/06/25 05:38 98.2 F 97 H 15 94/58 L 93 02/06/25 04:33 99.1 F 97 H 16 103/63 90 02/05/25 22:56 99.0 F 98 H 18 113/73 94 O2 Del Method 02/06/25 09:27 Room Air 02/06/25 07:23 Room Air 02/06/25 05:45 02/06/25 05:38 Room Air 02/06/25 04:33 Room Air 02/05/25 22:56 Room Air Coding Level of Care Code 60897 INT INP/OBS CARE MIN Diagnoses Transaminitis R74.01
[2025-02-06] MEDS: LEVALBUTEROL 1.25 MG/3 ML NEB NEB SCH (12:49)
[2025-02-06] MEDS: IPRATROPIUM BROMIDE NEB SOLN 0.02% 0.5MG/2.5ML VIAL NEB SCH (12:49)
--- NOTE | 2025-02-06 12:53 | Hospitalist Progress Note ---
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 Previously seen in ED on 02/01/25 for the above complaints. Other than a mild transaminitis her workup was grossly unremarkable. Tickborne illness panel at that time was negative except for A. phagocytophilum DNA testing and Babesia microti DNA PCR testing, both of which are still pending as of today. Patient was empirically started on oral doxycycline upon discharge from the ED at that time pending those DNA/PCR results. #Intermittent fevers #Fatigue Tickborne testing still pending as per above Elevated total absolute lymphocytes on CBC w/diff --> check monospot test, ? possibly elevated from underlying RA Peripheral smear: lymphocytosis with frequent large granular lymphocytes, favors reactive etiology UA negative CK WNL TSH WNL Procal, lactate WNL Check blood cxs Check monospot test Continue doxy for now pending full tickborne w/u results Checking TTE as per below 02/06 unclear etiology at this point no clear source of infection afebrile since admission, no leukocytosis blood culture: pending Anaplasmosis, Babesiosis, Ehrlichia DNA: pending on empiric Doxycycline HepBsAg preliminary: positive confirmatory test pending GI consulted #Dyspnea on minimal exertion, Bilateral groundglass opacities #Chest pain --> mostly with exertion and deep inspiration D-dimer 2350 Chest CTA: no PE or PNA, atelectasis Trop x 1 negative BNP 20 Check BLE venous doppler US Check TTE 02/06 echo: EF 60-65%, Gr1 Diastolic dysfunction patient appears to be on the dry side actually CT chest: no acute PE, (+) bilateral diffuse groundglass opacities possibly from viral illness? underlying interstitial lung disease? methotrexate toxicity? has past history of smoking worked on setting up a pool a week ago -- (+) conversational dyspnea on exam -- trial of Xopenex/Atrovent nebs TID incentive spirometer Pulmonology consulted #Transaminitis AST 105, ALT 124 Previously AST 67 and ALT 90 on 02/01 T. bili, alk phos WNL Chest CTA: hepatic steatosis Check liver US:Echogenic appearance of the liver parenchyma favoring fatty infiltration and/or underlying hepatic parenchymal disease. -- LFTs improving Hepatitis panel pending GI on board #Tachycardia Pt reports HR trend up into the upper 100s w/ minimal exertion EKG reviewed --> sinus tach, possible LA enlargement Check TTE as per above Monitor on tele May need to consider cards eval pending above w/u -- likely from dyspnea on exertion -- no acute PE sinus rhythm echo as above Hg 10.7--> monitor TSH, cortisol normal -- IV fluids ordered plan of care discussed with patient in detail and at length all questions answered [] understanding, agreeable, comfortable with the plan of care #Hypotension -- cortisol normal ACTH pending -- patient appears dry IV fluids ordered monitor #Rheumatoid arthritis Hold Otezla, methotrexate for now F/w [facility] rheum - MELI Jain -- not in acute flare #HLD Continue statin DVT Prophylaxis: SCDs/TEDs, heparin PCP: Kristopher Woody MD Disposition: lives at home plan of care discussed with patient in detail and at length all questions answered she is understanding, agreeable, comfortable with the plan of care Admission and Anticipated Discharge Date Admission Date: February 05, 2025 Subjective seen resting in bed, comfortable, not in distress feels slightly better compared to yesterday no fever/chills since admission still having dyspnea on minimal exertion no cough, chest pain, palpitations Review of Systems Review of Systems: all noted and negative except for above Physical Exam Physical Exam: General- oriented x 3, not in distress, speaks in sentences with no effort or accessory muscle use Eyes- anicteric Neck- no JVD Lungs- (+) mild crackle BL, no wheezing Heart- normal rate, regular rhythm; no murmurs Abdomen- normal bowel sounds, nondistended, soft, nontender Extremities- no pretibial edema, no calf tenderness Neuro- alert, oriented x 3; no gross focal neurologic deficits Skin- warm & dry Results & Data Results & Data Vital Signs (Past 12 Hours) Vital Signs Temp Pulse Pulse Resp BP Pulse Ox O2 Del Method 02/06/25 11:09 36.9 C 90 18 102/69 96 Room Air 02/06/25 09:27 Room Air 02/06/25 07:23 36.9 C 89 18 113/78 93 Room Air 02/06/25 05:45 93 H 02/06/25 05:38 36.8 C 97 H 15 94/58 L 93 Room Air 02/06/25 04:33 37.3 C 97 H 16 103/63 90 Room Air all noted and reviewed including below (1) Fever Fever type: unspecified Qualified Code(s): R50.9 - Fever, unspecified (2) Fatigue Fatigue type: unspecified Qualified Code(s): R53.83 - Other fatigue (4) Chest pain Chest pain type: unspecified Qualified Code(s): R07.9 - Chest pain, unspecified (7) Hypotension Hypotension type: unspecified hypotension type Qualified Code(s): I95.9 - Hypotension, unspecified
[2025-02-06] MEDS: NSS + 20MEQ KCL 20 MEQ/1,000 ML BAG IV SCH ×2 (13:01→15:27)
--- NOTE | 2025-02-06 14:02 | Pulmonary Consultation ---
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 The findings on her CT scan are quite mild. She is on room air. The only abnormality I can appreciate is may be some prominent pulmonary vasculature without overt pulmonary edema. There are no findings on the CT scan to adequately explain the patient's clinical symptomatology currently. Recommendations: 1. Dyspnea on exertion: Seems more related to the patient's tachycardia. While she was up using the restroom, her heart rate increased into the 150s. She never had a Holter monitor or event monitor performed previously. She is unclear when her last stress test was performed. Her echo shows only diastolic dysfunction which certainly could be exacerbated with heart rates in the 150s. Consider Holter monitoring and additional cardiac evaluation for her potential inappropriate tachycardia. 2. Findings on her CT scan are minimal at best and again would not explain the patient's symptomatology. Do not think additional workup or evaluation is required at this point in time. 3. Recommend the patient continue to follow with her primary care provider and primary admitting service for additional evaluation of her complaints. Pulmonary will sign off at this point in time. If additional pulmonary evaluation is required, this can likely be conducted in the outpatient setting with complete pulmonary function testing. History of Present Illness Attending Physician: Loc Damon MD History of Present Illness Asked by hospitalist to assist in evaluation management of this patient with a multitude of diverse complaints with questionable abnormal CT scan and shortness of breath. History is obtained from discussion with the patient as well as review of electronic medical record. 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 She reports over the last several weeks constitutional symptoms such as myalgias, weakness, fatigue, low-grade fevers, and tachycardia with minimal activity associated with some shortness of breath. She was seen in the emergency room and was given a presumptive diagnosis of the tickborne illness. She returned home but returned back to the emergency room due to similar complaints. Patient is followed by rheumatology for psoriatic arthritis. She had a CT scan performed which was read as some mosaicism and there was concern about potential pulmonary etiology for her complaints which prompted pulmonary consultation. The patient reports that her shortness of breath is always associated with tachycardia. She never had a Holter or event monitor performed. She is fairly active at baseline but has had poor p.o. intake over the last several weeks. She does not report any cough or sputum production. No wheezing. She does not report exertional chest pain or lower extremity edema. She believes she had a stress test performed several years ago. Her D-dimer was elevated however CT angiogram was unremarkable. GI consultation was obtained given transaminitis as well as anemia. She was noted to have prelim positive hep B surface antigen. Allergies Allergy/AdvReac Type Severity Reaction Status Date / Time aspirin Allergy Severe Anaphylaxis Verified 01/29/25 13:38 homosalate Allergy FACIAL Verified 01/29/25 13:38 SWELLING NSAIDS (Non-Steroidal Allergy HX GASTRIC Verified 01/29/25 13:38 Anti-Inflamma BYPASS-ADVISED AGAINST TAKING Penicillins Allergy Rash Verified 01/29/25 13:38 thimerosal Allergy CONTACT Verified 01/29/25 13:38 DERMATITIS Home Medications Medication Instructions Recorded Confirmed Type Vitamin D3 1 cap PO HS 12/24/22 02/05/25 History cetirizine 10 mg capsule 10 mg PO QAM 12/24/22 02/05/25 History folic acid 1 mg tablet 1 mg PO HS 12/24/22 02/05/25 History rosuvastatin 10 mg tablet 10 mg PO HS 12/24/22 02/05/25 History apremilast 30 mg tablet (Otezla) 30 mg PO BID 06/18/24 02/05/25 History methotrexate sodium 2.5 mg tablet 15 mg PO .WEEKLY 02/01/25 02/05/25 History doxycycline hyclate 100 mg tablet 100 mg PO BID 02/05/25 02/05/25 History Patient History Medical History Raynaud phenomenon History of anesthesia problem hypotension with colonoscopy attributed to propofol per pt, denies additional issues with subsequent surgeries/propofol administration History of GI bleed 2016>FOUND TO BE FROM POLYPS FOUND DURING COLONOSCOPY Hx of seasonal allergies Hyperlipidemia Non-specific colitis HX Hx of colonic polyps Anxiety Psoriatic arthritis Osteoporosis Surgical History S/P panniculectomy History of lumbar laminectomy Hx of laparoscopy EXPLORATORY Hx laparoscopic cholecystectomy History of open reduction and internal fixation (ORIF) procedure RT. WRIST Personal hx of gastric bypass History of esophagogastroduodenoscopy (EGD) Hx of colonoscopy Social History Smoking Status: Former smoker Tobacco Type: Cigarettes Cigarettes Per Day: .5 pack; Second Hand Exposure: Yes (HX); Do You Dip or Chew Tobacco: No; Hx Alcohol Use: Yes Alcohol type: wine Hx Substance Use: Yes Last Used Substance Other:: 02/04 HS Preferred Language: Chadian Communication Ability: Effective Field Organizer Required: No Beliefs That Will Affect Care: None Current Living Situation: Spouse Current Living Situation Comment: home with . patient is primary caregiver for self and . Feels Safe at Home: Yes Assistive Devices: Glasses Review of Systems Review of Systems: Please refer to hospitalist notes. No additions or deletions Physical Exam Constitutional: WD/WN, vitals as above Neck: trachea midline, no thyromegaly Respiratory: normal respiratory effort, lungs clear to auscultation Cardiovascular: RRR, no murmur, no edema Gastrointestinal (Abdomen): normal bowel sounds, soft, nontender, no hepatosplenomegaly Musculoskeletal: Extremities: extremities normal to inspection Skin: no rashes, warm and dry Neurologic: Nonfocal exam Lymphatic: no cervical lymphadenopathy Results & Data Results & Data Vital Signs (Past 12 Hours) Vital Signs Temp Pulse Pulse Resp BP Pulse Ox O2 Del Method 02/06/25 12:48 99 H 16 95 Room Air 02/06/25 11:09 36.9 C 90 18 102/69 96 Room Air 02/06/25 09:27 Room Air 02/06/25 07:23 36.9 C 89 18 113/78 93 Room Air 02/06/25 05:45 93 H 02/06/25 05:38 36.8 C 97 H 15 94/58 L 93 Room Air 02/06/25 04:33 37.3 C 97 H 16 103/63 90 Room Air Diagnostic Findings Echocardiogram 02/06/2025 showed an ejection fraction of 60 to 65% with concentric LVH and grade 1 diastolic dysfunction. Critical Care Results & Data Vital Signs (Past 12 Hours) Vital Signs Temp Pulse Pulse Resp BP Pulse Ox O2 Del Method 02/06/25 12:48 99 H 16 95 Room Air 02/06/25 11:09 36.9 C 90 18 102/69 96 Room Air 02/06/25 09:27 Room Air 02/06/25 07:23 36.9 C 89 18 113/78 93 Room Air 02/06/25 05:45 93 H 02/06/25 05:38 36.8 C 97 H 15 94/58 L 93 Room Air 02/06/25 04:33 37.3 C 97 H 16 103/63 90 Room Air Lab & Micro Results (Past 24 Hours) RBC 3.54 M/uL (4.20-5.40) L 02/06/25 WBC 6.26 K/ul (4.8-10.8) 02/06/25 Hgb 10.7 g/dl (12.0-16.0) L 02/06/25 Hct 31.4 % (37.0-47.0) L 02/06/25 MCV 88.7 fL (80.0-100.0) 02/06/25 MCH 30.2 pg (25.0-34.0) 02/06/25 MCHC 34.1 g/dL (32.0-36.0) 02/06/25 RDW Standard Deviation 44.5 fL (36.4-46.3) 02/06/25 RDW Coefficient of Variation 13.6 % (11.5-14.5) 02/06/25 Plt Count 201 K/uL (130-400) 02/06/25 MPV 10.2 fL (9.4-12.4) 02/06/25 ANC 1.50 K/uL (1.4-6.5) 02/06/25 ALC 4.32 K/uL (1.2-3.4) H 02/06/25 Neutrophils % (Manual) 24 % 02/06/25 Lymphocytes % (Manual) 27 % 02/06/25 Reactive Lymphocytes % (Manual) 42 % 02/06/25 Monocytes % (Manual) 2 % 02/06/25 Eosinophils % (Manual) 3 % 02/06/25 Basophils % (Manual) 2 % 02/06/25 Neutrophils # (Manual) 1.50 K/uL (1.40-6.50) 02/06/25 Lymphocytes # (Manual) 1.69 K/uL (1.2-3.4) 02/06/25 Reactive Lymphocytes # 2.63 K/uL 02/06/25 Monocytes # (Manual) 0.13 K/uL (0.11-0.59) 02/06/25 Eosinophils # (Manual) 0.19 K/uL (0-0.50) 02/06/25 Basophils # (Manual) 0.13 K/uL (0-0.2) 02/06/25 Na 136 mmol/L (136-145) 02/06/25 K 3.8 mmol/L (3.5-5.1) 02/06/25 Cl 108 mmol/L (98-107) H 02/06/25 CO2 24 mmol/L (21-32) 02/06/25 Anion Gap 4 (3-11) 02/06/25 BUN 7 mg/dl (6-23) 02/06/25 Creatinine 0.55 mg/dl (0.6-1.2) L 02/06/25 BUN/Creatinine Ratio 12.7 (10-20) 02/06/25 Glu 91 mg/dl (70-99(Fasting)) 02/06/25 Ca 8.0 mg/dl (8.6-10.3) L 02/06/25 Phosphorus Level 3.3 mg/dl (2.5-4.9) 02/06/25 Total Bilirubin 0.5 mg/dl (0.2-1.0) 02/06/25 AST 69 U/L (13-39) H 02/06/25 ALT 85 U/L (7-52) H 02/06/25 Alkaline Phosphatase 59 U/L (34-104) 02/06/25 TP 6.2 gm/dl (6.0-8.3) 02/06/25 Albumin 3.4 gm/dl (3.4-5.0) 02/06/25 Globulin 2.8 gm/dl (2.5-4.0) 02/06/25 Albumin/Globulin Ratio 1.2 (0.9-2) 02/06/25 Mg 1.8 mg/dl (1.7-2.4) 02/06/25 07:05 Calcium Level 8.0 mg/dl (8.6-10.3) L 02/06/25 07:05 Diagnostic Findings (Past 24 Hours) Chest CTA 02/05/25 13:27 CT angio chest PE protocol CT DOSE: 775.91 mGy.cm HISTORY: 69 years-old Female with PE. Acute shortness of breath TECHNIQUE: Multiple CTA images of the chest were obtained after the intravenous administration of 112 ml Optiray. Coronal and sagittal MIPS were obtained from the axial data set and were submitted for review. All measurements were obtained according to NASCET criteria. A dose lowering technique was utilized adhering to the principles of ALARA. COMPARISON: Chest radiograph same day FINDINGS: CTA: The heart is upper limits of normal in size. Mild coronary artery calcifications. No pericardial effusion. No thoracic aortic aneurysm or dissection. No pulmonary emboli identified. CT CHEST: No thyroid nodule. Subcentimeter mediastinal and hilar lymph nodes are likely physiologic. No pneumothorax, pleural effusion, or focal airspace consolidation. Intralobular septal thickening with mild intermixed groundglass densities. 5 mm fissural nodule on image 127 series 4 within the right midlung, likely a lymph node. Hepatic steatosis. Cholecystectomy with postoperative changes of the stomach. No acute fracture. IMPRESSION: 1. No pulmonary emboli. 2. No lobar airspace consolidation typical for pneumonia. No pleural effusion. 3. Intralobular septal thickening with intermixed bilateral groundglass den sities suggestive of atelectasis. A component of mild interstitial pulmonary edema may also be present. 4. Hepatic steatosis. ACT 112: Negative or not required by law. The above report was generated using voice recognition software. It may contain grammatical, syntax or spelling errors. Electronically signed by: Chaz Villalobos M.D. 02/05/2025 2:13 PM Liver Ultrasound 02/05/25 15:46 EXAM: Ultrasound liver CLINICAL HISTORY: Elevated liver tests TECHNIQUE: Ultrasound interrogation of the abdomen was performed with grayscale and color Doppler imaging. PRIORS: None FINDINGS: The liver is normal in size and configuration. Echogenic liver parenchyma demonstrated. No intrahepatic ductal dilatation. No hepatic mass. Portal vein is patent. Gallbladder surgically absent. The common bile duct measures 9 mm, within normal limits allowing for cholecystectomy. No ascites Right kidney demonstrates no hydronephrosis. IMPRESSION: 1. Echogenic appearance of the liver parenchyma favoring fatty infiltration and/or underlying hepatic parenchymal disease. Electronically signed by Simona Peterson 02-05-2025 4:42 PM Venous Doppler Study 02/05/25 15:46 EXAMINATION: Ultrasound venous Doppler lower extremity bilateral CLINICAL HISTORY: Elevated D-dimer, dyspnea. PRIORS: None TECHNIQUE: Ultrasound interrogation of the deep venous structures was performed with grayscale, color Doppler, compression and augmentation. FINDINGS: The bilateral common femoral, superficial femoral, saphenous, popliteal and tibial veins demonstrate normal compressibility, frequency and augmentation. Right popliteal cyst measuring 1.7 x 2.6 x 6 cm. IMPRESSION: No sonographic evidence of deep venous thrombosis in the bilateral lower extremities. Electronically signed by Simona Peterson 02-05-2025 5:09 PM I & O Totals 24 Hours 02/05/25 02/06/25 02/07/25 06:59 06:59 06:59 Intake Total 2490 / 2490 67.5 / 67.5 Balance 2490 / 2490 67.5 / 67.5 Cumulative 02/05/25 11:48 thru 02/06/25 13:15 Intake Total 2557.5 Balance 2557.5 RT Ventilator Mngmt (Last Documented) Ventilator Ordered Settings Respiratory Rate 16 02/06/25 12:48 Ventilator - PT Measurements Respiratory Rate 16 PG Care Time/CCT Total # of Minutes Spent Total Time Spent with Patient: Total time spent is greater than 50% in coordination of care (as documented) at patient's floor/unit and/or counseling patient: Coding Level of Care Code 48392 INT INP/OBS CARE 2/55MIN Diagnoses Dyspnea on exertion R06.09
[2025-02-06] MEDS: SODIUM CHLORIDE 0.9% 500 ML IV ONE (14:54)
--- NOTE | 2025-02-06 16:27 | Electrocardiogram Report ---
Test Reason : Blood Pressure : */* mmHG Vent. Rate : 111 BPM Atrial Rate : 111 BPM P-R Int : 144 ms QRS Dur : 68 ms QT Int : 324 ms P-R-T Axes : 39 -23 18 degrees QTcB Int : 440 ms Sinus tachycardia Possible Left atrial enlargement Inferior infarct , age undetermined Anterolateral infarct (cited on or before 28-Dec-2022) Abnormal ECG When compared with ECG of 01-Feb-2025 11:29, Questionable change in initial forces of Lateral leads Confirmed by Ze Ordonez ([id number]) on 02/06/2025 4:27:03 PM Referred By: Kristopher Woody Confirmed By: Ze Ordonez
--- NOTE | 2025-02-06 16:36 | Infectious Disease Consult ---
Date of Service February 06, 2025 Telehealth Information I performed this visit using a real-time telehealth connection between my location and the patients location ([facility]). After connecting through interactive tele-video, patient was identified by name and date of and/or wristband check.Patient (or authorized healthcare financial foundations representative) was informed that this was a telemedicine visit and it was being conducted confidentially over secure lines. My office door was closed and no one else was present in the room with me.Patient (or authorized healthcare financial foundations representative) provided consent to proceed with the visit, expressed an understanding of privacy and security of the telemedicine visit, and gave permission to have a hospital financial foundations representative in the room in order to assist with the visit and to conduct portions of the visit, as needed. I informed the patient (or authorized healthcare financial foundations representative) that I reviewed their record and presented the opportunity for them to ask any questions regarding the visit today. The patient agreed to participate. Assessment & Plan (1) Fever: (2) Fatigue: (3) Tachycardia: (4) Hypotension: Plan Since the fever defervesced while on doxycycline, it is very reasonable to keep the same plan for now without any additional antibiotics. Continue to follow up on the Anaplasma and Babesia PCR to decide on further management. If the Anaplasma /Babesia PCR comes back negative and the patient starts to feel better, I would likely monitor without any further management or workup. We might end up with no diagnosis and the illness resolved by itself. History of Present Illness History of Present Illness Ms. Mtz is a 69-year-old woman with medical history of Raynaud's pheno michael, urinary incontinence, psoriatic arthritis, major depressive disorder/generalized anxiety disorder, and hyperlipidemia who was admitted to [facility] on 02/05/2025 because of generalized fatigue associated with myalgia and fevers. She mentioned that the illness started around 2 weeks prior to presentation with mainly systemic symptoms of fatigue and fevers. Later, she started noticing shortness of breath on minimal exertion associated with tachycardia and hypotension. She was seen in the Emergency Department few days ago on 02/01 because of the same reason and the only abnormality at that time was mildly elevated AST and ALT. At that time, tick- borne panel was sent and she was started preemptively on oral doxycycline. She felt a little better after 3-4 days of doxycycline especially without any fever, but she continued to feel fatigued. On this admission, she was afebrile, tachycardic at 112 and borderline hypotensive; the rest of the vitals were within normal limits. Initial workup showed no leukocytosis, normocytic anemia, mildly elevated ALT and AST, UA with 0-2 WBCs, negative Lyme screen, negative hep C antibody, negative hep a IgM antibody, prelim positive HB surface antigen, and negative mono screen. Patient had a RVP panel performed on 02/01 which was negative. CTA of the chest was unremarkable. Ultrasound liver showed fatty infiltration and/or underlying hepatic parenchymal disease. And TTE showed good left ventricular function with a grade 1 diastolic dysfunction. ID team was consulted because of concern for fever of unknown etiology. Allergies Allergy/AdvReac Type Severity Reaction Status Date / Time aspirin Allergy Severe Anaphylaxis Verified 01/29/25 13:38 homosalate Allergy FACIAL Verified 01/29/25 13:38 SWELLING NSAIDS (Non-Steroidal Allergy HX GASTRIC Verified 01/29/25 13:38 Anti-Inflamma BYPASS-ADVISED AGAINST TAKING Penicillins Allergy Rash Verified 01/29/25 13:38 thimerosal Allergy CONTACT Verified 01/29/25 13:38 DERMATITIS Home Medications Medication Instructions Recorded Confirmed Type Vitamin D3 1 cap PO HS 12/24/22 02/05/25 History cetirizine 10 mg capsule 10 mg PO QAM 12/24/22 02/05/25 History folic acid 1 mg tablet 1 mg PO HS 12/24/22 02/05/25 History rosuvastatin 10 mg tablet 10 mg PO HS 12/24/22 02/05/25 History apremilast 30 mg tablet (Otezla) 30 mg PO BID 06/18/24 02/05/25 History methotrexate sodium 2.5 mg tablet 15 mg PO .WEEKLY 02/01/25 02/05/25 History doxycycline hyclate 100 mg tablet 100 mg PO BID 02/05/25 02/05/25 History Patient History Medical History Raynaud phenomenon History of anesthesia problem hypotension with colonoscopy attributed to propofol per pt, denies additional issues with subsequent surgeries/propofol administration History of GI bleed 2016>FOUND TO BE FROM POLYPS FOUND DURING COLONOSCOPY Hx of seasonal allergies Hyperlipidemia Non-specific colitis HX Hx of colonic polyps Anxiety Psoriatic arthritis Osteoporosis Surgical History S/P panniculectomy History of lumbar laminectomy Hx of laparoscopy EXPLORATORY Hx laparoscopic cholecystectomy History of open reduction and internal fixation (ORIF) procedure RT. WRIST Personal hx of gastric bypass History of esophagogastroduodenoscopy (EGD) Hx of colonoscopy Social History Smoking Status: Former smoker Tobacco Type: Cigarettes Cigarettes Per Day: .5 pack; Second Hand Exposure: Yes (HX); Do You Dip or Chew Tobacco: No; Hx Alcohol Use: Yes Alcohol type: wine Hx Substance Use: Yes Last Used Substance Other:: 02/04 HS Preferred Language: Croatian Communication Ability: Effective Vegetable Tier Required: No Beliefs That Will Affect Care: None Current Living Situation: Spouse Current Living Situation Comment: home with . patient is primary caregiver for self and . Feels Safe at Home: Yes Assistive Devices: None Review of Systems Negative except for what was mentioned in the H&P. Physical Exam Could not be performed as the visit was conducted via TeleMed. Results & Data Vital Signs (Past 12 Hours) Vital Signs Temp Pulse Pulse Resp BP Pulse Ox O2 Del Method 02/06/25 15:05 36.8 C 111 H 18 106/63 96 Room Air 02/06/25 12:59 99 H 02/06/25 12:48 99 H 16 95 Room Air 02/06/25 11:09 36.9 C 90 18 102/69 96 Room Air 02/06/25 09:27 Room Air 02/06/25 07:23 36.9 C 89 18 113/78 93 Room Air 02/06/25 05:45 93 H 02/06/25 05:38 36.8 C 97 H 15 94/58 L 93 Room Air 02/06/25 04:33 37.3 C 97 H 16 103/63 90 Room Air Laboratory Results Microbiology: 02/05: 2 sets of blood culture negative to date Diagnostic Findings CTA chest on 02/05: IMPRESSION: 1. No pulmonary emboli. 2. No lobar airspace consolidation typical for pneumonia. No pleural effusion. 3. Intralobular septal thickening with intermixed bilateral groundglass densities suggestive of atelectasis. A component of mild interstitial pulmonary edema may also be present. 4. Hepatic steatosis. Ultrasound liver on 02/05: 1. Echogenic appearance of the liver parenchyma favoring fatty infiltration and/or underlying hepatic parenchymal disease. (1) Fever Fever type: unspecified Qualified Code(s): R50.9 - Fever, unspecified (2) Fatigue Fatigue type: unspecified Qualified Code(s): R53.83 - Other fatigue (4) Hypotension Hypotension type: unspecified hypotension type Qualified Code(s): I95.9 - Hypotension, unspecified
[2025-02-06] MEDS: LORazepam 0.5 MG TAB PO PRN (23:18)
[2025-02-07] MEDS: LEVALBUTEROL 1.25 MG/3 ML NEB NEB STA (06:51)
[2025-02-07 09:56] LABS: Hematocrit (blood only) 34.4 % (37.0-47.0); Hemoglobin 11.5 g/dl (12.0-16.0); Mean Corpuscular Hemoglobin 30.2 pg (25.0-34.0); Mean Corpuscular Hgb Conc 33.4 g/dL (32.0-36.0); Mean Corpuscular Volume 90.3 fL (80.0-100.0); Mean Platelet Volume 10.2 fL (9.4-12.4); Platelet Count 234 K/uL (130-400); RDW Coefficient of Variation 13.8 % (11.5-14.5); RDW Standard Deviation 45.5 fL (36.4-46.3); Red Blood Count 3.81 M/uL (4.20-5.40); White Blood Count 6.21 K/ul (4.8-10.8)
[2025-02-07 10:09] LABS: BUN Creatinine Ratio 10.2 (10-20); Calcium 8.2 mg/dl (8.6-10.3); Creatinine Clr Calc Pharmacy 86.1 ml/min; Magnesium 1.7 mg/dl (1.7-2.4); Phosphorus 2.4 mg/dl (2.5-4.9)
[2025-02-07 11:22] LABS: ALC (manual) 3.85 K/uL (1.2-3.4); ANC (manual) 1.93 K/uL (1.4-6.5); Basophils # (manual) 0.06 K/uL (0-0.2); Basophils % (manual) 1 %; Lymphocytes # (manual) 2.11 K/uL (1.2-3.4); Lymphocytes % (manual) 34 %; Monocytes # (manual) 0.37 K/uL (0.11-0.59); Monocytes % (manual) 6 %; Neutrophils # (manual) 1.93 K/uL (1.40-6.50); Neutrophils % (manual) 31 %; RBC Morphology Unremarkable; Reactive Lymphocytes # (manual) 1.74 K/uL; Reactive Lymphocytes % (manual) 28 %
--- NOTE | 2025-02-07 12:00 | Communication Note ---
Date of Service: February 07, 2025 Patients Hep Bs Ag confirmation came back non reactive. Informed patient. she tells me that she is starting to feel better. no new GI concerns. GI will sign off at this time. please reconsult as needed.
[2025-02-07] MEDS ORDERED: IPRATROPIUM BROMIDE NEB SOLN 0.02% 0.5MG/2.5ML VIAL NEB PRN (12:42)
[2025-02-07] MEDS ORDERED: LEVALBUTEROL 1.25 MG/3 ML NEB NEB PRN (12:42)
[2025-02-07 13:11] LABS: Hepatitis A Antibody IgM NON-REACTIVE (NON-REACTIVE); Hepatitis B Core Antibody IgM NON-REACTIVE (NON-REACTIVE)
--- NOTE | 2025-02-07 15:24 | Hospitalist Progress Note ---
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 Previously seen in ED on 02/01/25 for the above complaints. Other than a mild transaminitis her workup was grossly unremarkable. Tickborne illness panel at that time was negative except for A. phagocytophilum DNA testing and Babesia microti DNA PCR testing, both of which are still pending as of today. Patient was empirically started on oral doxycycline upon discharge from the ED at that time pending those DNA/PCR results. #Intermittent fevers #Fatigue Tickborne testing still pending as per above Elevated total absolute lymphocytes on CBC w/diff --> check monospot test, ? possibly elevated from underlying RA Peripheral smear: lymphocytosis with frequent large granular lymphocytes, favors reactive etiology UA negative CK WNL TSH WNL Procal, lactate WNL Check blood cxs Check monospot test Continue doxy for now pending full tickborne w/u results Checking TTE as per below 02/06 unclear etiology at this point no clear source of infection afebrile since admission, no leukocytosis blood culture: pending Anaplasmosis, Babesiosis, Ehrlichia DNA: pending on empiric Doxycycline HepBsAg preliminary: positive confirmatory test pending GI consulted 02/07 patient feels improved overall today afebrile, no leukocytosis blood culture: pending ID consulted confirmatory hep panel pending tick borne illnesses DNA pending continue Doxy PO for now #Dyspnea on minimal exertion, Bilateral groundglass opacities #Chest pain --> mostly with exertion and deep inspiration D-dimer 2350 Chest CTA: no PE or PNA, atelectasis Trop x 1 negative BNP 20 Check BLE venous doppler US: negative 02/06 echo: EF 60-65%, Gr1 Diastolic dysfunction patient appears to be on the dry side actually CT chest: no acute PE, (+) bilateral diffuse groundglass opacities possibly from viral illness? underlying interstitial lung disease? methotrexate toxicity? has past history of smoking worked on setting up a pool a week ago -- (+) conversational dyspnea on exam -- trial of Xopenex/Atrovent nebs TID incentive spirometer Pulmonology consulted 02/07 Pulm consulted, appreciate the recommendations CT findings mild, will not explain patient's symptomatology dyspnea from inappropriate sinus tachycardia? #Transaminitis AST 105, ALT 124 Previously AST 67 and ALT 90 on 02/01 T. bili, alk phos WNL Chest CTA: hepatic steatosis Check liver US:Echogenic appearance of the liver parenchyma favoring fatty infiltration and/or underlying hepatic parenchymal disease. -- LFTs improving Hepatitis panel pending GI on board #Tachycardia Pt reports HR trend up into the upper 100s w/ minimal exertion EKG reviewed --> sinus tach, possible LA enlargement Check TTE as per above Monitor on tele May need to consider cards eval pending above w/u -- likely from dyspnea on exertion -- no acute PE sinus rhythm echo as above Hg 10.7--> monitor TSH, cortisol normal -- IV fluids ordered #Hypotension -- cortisol normal ACTH pending -- patient appears dry IV fluids ordered monitor #Rheumatoid arthritis Hold Otezla, methotrexate for now F/w [facility] rheum - MELI Jain -- not in acute flare #HLD Continue statin DVT Prophylaxis: SCDs/TEDs, heparin PCP: Kristopher Woody MD Disposition: lives at home plan of care discussed with patient in detail and at length all questions answered she is understanding, agreeable, comfortable with the plan of care Admission and Anticipated Discharge Date Admission Date: February 05, 2025 Subjective ff up for fever, shortness of breath, etc seen resting in bed, comfortable sitting up in bed, in good spirits, very pleasant states she feels improved today compared to yesterday no fever/chills no abdominal pain, nausea appetite improving breathing seems to be improving overall nebs not making a difference no cough able to ambulate in the room with no problems denies chest pain, palpitations, dizziness would like to try to ambulate in the hallways Review of Systems Review of Systems: all noted and negative except for above Physical Exam Physical Exam: General- oriented x 3, not in distress, speaks in sentences with no effort or accessory muscle use Eyes- anicteric Neck- no JVD Lungs-mild crackles at the bases, no wheezing Heart- mild tachycardia, regular rhythm; no murmurs Abdomen- normal bowel sounds, nondistended, soft, no tenderness Extremities- no pretibial edema, no calf tenderness Neuro- alert, oriented x 3; no gross focal neurologic deficits Skin- warm & dry Results & Data Results & Data Vital Signs (Past 12 Hours) Vital Signs Temp Pulse Pulse Pulse Resp BP Pulse Ox 02/07/25 13:29 107 H 20 95/64 L 95 02/07/25 13:00 104 H 02/07/25 11:13 37.0 C 105 H 18 94/64 L 93 02/07/25 10:47 02/07/25 07:52 36.8 C 101 H 18 92/56 L 98 02/07/25 07:28 86 18 96 02/07/25 05:42 104 H 02/07/25 04:12 37.5 C 106 H 18 122/76 92 O2 Del Method 02/07/25 13:29 Room Air 02/07/25 13:00 02/07/25 11:13 Room Air 02/07/25 10:47 Room Air 02/07/25 07:52 Room Air 02/07/25 07:28 Room Air 02/07/25 05:42 02/07/25 04:12 Room Air all noted and reviewed including below (1) Fever Fever type: unspecified Qualified Code(s): R50.9 - Fever, unspecified (2) Fatigue Fatigue type: unspecified Qualified Code(s): R53.83 - Other fatigue (4) Chest pain Chest pain type: unspecified Qualified Code(s): R07.9 - Chest pain, unspecified (7) Hypotension Hypotension type: unspecified hypotension type Qualified Code(s): I95.9 - Hypotension, unspecified
[2025-02-08 07:44] LABS: Hematocrit (blood only) 36.4 % (37.0-47.0); Hemoglobin 11.8 g/dl (12.0-16.0); Mean Corpuscular Hemoglobin 29.3 pg (25.0-34.0); Mean Corpuscular Hgb Conc 32.4 g/dL (32.0-36.0); Mean Corpuscular Volume 90.3 fL (80.0-100.0); Mean Platelet Volume 10.9 fL (9.4-12.4); Platelet Count 239 K/uL (130-400); RDW Standard Deviation 46.6 fL (36.4-46.3); Red Blood Count 4.03 M/uL (4.20-5.40); White Blood Count 6.13 K/ul (4.8-10.8)
[2025-02-08 08:09] LABS: BUN Creatinine Ratio 10.3 (10-20); Calcium 8.2 mg/dl (8.6-10.3); Creatinine Clr Calc Pharmacy 87.6 ml/min; Potassium 4.5 mmol/L (3.5-5.1)
[2025-02-08 08:37] LABS: ALC (manual) 2.76 K/uL (1.2-3.4); ANC (manual) 2.88 K/uL (1.4-6.5); Eosinophils # (manual) 0.06 K/uL (0-0.50); Eosinophils % (manual) 1 %; Lymphocytes # (manual) 1.23 K/uL (1.2-3.4); Lymphocytes % (manual) 20 %; Monocytes # (manual) 0.43 K/uL (0.11-0.59); Monocytes % (manual) 7 %; Neutrophils # (manual) 2.88 K/uL (1.40-6.50); Neutrophils % (manual) 47 %; RBC Morphology Unremarkable; Reactive Lymphocytes # (manual) 1.53 K/uL; Reactive Lymphocytes % (manual) 25 %
[2025-02-08] MEDS: ONDANSETRON INJ 2 MG/ML 2 ML VIAL IV PRN (11:41)
--- NOTE | 2025-02-08 13:30 | Hospitalist Progress Note ---
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 Previously seen in ED on 02/01/25 for the above complaints. Other than a mild transaminitis her workup was grossly unremarkable. Tickborne illness panel at that time was negative except for A. phagocytophilum DNA testing and Babesia microti DNA PCR testing, both of which are still pending as of today. Patient was empirically started on oral doxycycline upon discharge from the ED at that time pending those DNA/PCR results. #Intermittent fevers #Fatigue Tickborne testing still pending as per above Elevated total absolute lymphocytes on CBC w/diff --> check monospot test, ? possibly elevated from underlying RA Peripheral smear: lymphocytosis with frequent large granular lymphocytes, favors reactive etiology UA negative CK WNL TSH WNL Procal, lactate WNL Check blood cxs Check monospot test Continue doxy for now pending full tickborne w/u results Checking TTE as per below 02/06 unclear etiology at this point no clear source of infection afebrile since admission, no leukocytosis blood culture: pending Anaplasmosis, Babesiosis, Ehrlichia DNA: pending on empiric Doxycycline HepBsAg preliminary: positive confirmatory test pending GI consulted 02/07 patient feels improved overall today afebrile, no leukocytosis blood culture: pending ID consulted confirmatory hep panel pending tick borne illnesses DNA pending continue Doxy PO for now 02/07 feels improved overall except of episodes of symptomatic tachycardia hepBsAg negative complete Doxycyline PO BID course, total 10 days #Dyspnea on minimal exertion, Bilateral groundglass opacities #Chest pain --> mostly with exertion and deep inspiration D-dimer 2350 Chest CTA: no PE or PNA, atelectasis Trop x 1 negative BNP 20 Check BLE venous doppler US: negative 02/06 echo: EF 60-65%, Gr1 Diastolic dysfunction patient appears to be on the dry side actually CT chest: no acute PE, (+) bilateral diffuse groundglass opacities possibly from viral illness? underlying interstitial lung disease? methotrexate toxicity? has past history of smoking worked on setting up a pool a week ago -- (+) conversational dyspnea on exam -- trial of Xopenex/Atrovent nebs TID incentive spirometer Pulmonology consulted 02/07 Pulm consulted, appreciate the recommendations CT findings mild, will not explain patient's symptomatology, dyspnea possibly from inappropriate sinus tachycardia? #Transaminitis AST 105, ALT 124 Previously AST 67 and ALT 90 on 02/01 T. bili, alk phos WNL Chest CTA: hepatic steatosis Check liver US:Echogenic appearance of the liver parenchyma favoring fatty infiltration and/or underlying hepatic parenchymal disease. -- LFTs improving Hepatitis panel: negative except for HepB core AB pending GI on board # Persistent Sinus Tachycardia Pt reports HR trend up into the upper 100s w/ minimal exertion EKG reviewed --> sinus tach, possible LA enlargement -- acute PE ruled out echo EF 60-65%, Gr 1 diastolic dysfunction Hg 10.7--> 11.8 TSH, cortisol normal -- IV fluids ordered for possible volume given -- patient still having persistent tachycardia HR 130s while in the bathroom today, symptomatic will consult Cardiology service #Hypotension -- cortisol normal ACTH pending -- patient appears dry IV fluids ordered -- BP improved to systolic 110s #Rheumatoid arthritis Hold Otezla, methotrexate for now F/w [facility] rheum - MELI Jain -- not in acute flare #HLD Continue statin DVT Prophylaxis: SCDs/TEDs, heparin PCP: Kristopher Woody MD Disposition: lives at home plan of care discussed with patient in detail and at length all questions answered she is understanding, agreeable, comfortable with the plan of care Admission and Anticipated Discharge Date Admission Date: February 05, 2025 Subjective seen resting in bed, comfortable sitting up in bed, using her ipad states she had an episode around 1130am while in the bathroom, washing up, she felt short of breath, and saw that her HR was 130s from her monitor box that she was wearing she also felt fatigued, and diaphoretic, went back to bed, and felt that her symptoms gradually resolved, HR also improved otherwise, feels ok overall no fever/chills, abdominal pain, nausea/vomiting appetite improving Review of Systems Review of Systems: all noted and negative except for above Physical Exam Physical Exam: General- oriented x 3, not in distress, speaks in sentences with no effort or accessory muscle use Eyes- anicteric Neck- no JVD Lungs- clear breath sounds bilaterally, no rales/wheezes Heart- mild tachycardia, regular rhythm; no murmurs Abdomen- normal bowel sounds, nondistended, soft, nontender Extremities- no pretibial edema, no calf tenderness Neuro- alert, oriented x 3; no gross focal neurologic deficits Skin- warm & dry Results & Data Results & Data Vital Signs (Past 12 Hours) Vital Signs Temp Pulse Resp BP Pulse Ox O2 Del Method 02/08/25 11:13 36.7 C 105 H 18 110/75 94 Room Air 02/08/25 07:50 37 C 114 H 18 106/71 94 Room Air 02/08/25 05:29 37.7 C H 108 H 14 106/71 91 Room Air all noted and reviewed including below (1) Fever Fever type: unspecified Qualified Code(s): R50.9 - Fever, unspecified (2) Fatigue Fatigue type: unspecified Qualified Code(s): R53.83 - Other fatigue (4) Chest pain Chest pain type: unspecified Qualified Code(s): R07.9 - Chest pain, unspecified (7) Hypotension Hypotension type: unspecified hypotension type Qualified Code(s): I95.9 - Hypotension, unspecified
--- NOTE | 2025-02-08 14:11 | Cardiology Consultation ---
Date of Consultation February 08, 2025 Assessment & Plan (1) Tachycardia: Inappropriate sinus tachycardia (2) Dyspnea on exertion: (3) Anxiety: (4) Fever: Plan Assessment: Patient is a 78 yo female with medical history that includes HLD, psoriatic arthritis, generalized anxiety disorder, h/o positive FELISA, and Raynaud syndrome. Patient presented to the ER on 02/05/2025 with dyspnea on exertion. Patient was seen at [facility] ER about 2 weeks ago for suspected tickborne illness and prescribed prophylactic Doxycycline. Due to little to no improvement in her symptoms and new tachycardia and dyspnea with minimal exertion. Cardiology s ervices requested for assessment and recommendations. 1. Inappropriate sinus tachycardia 2. Dyspnea on exertion 3. Fever of unknown origin 4. Generalized anxiety disorder -No acute cardiac complaints. No chest pain, SOB, orthopnea, dizziness, lightheadedness. -Telemetry reviewed: Sinus tachy, HR 100s, 120-135 bpm at 11am. No arrhythmias, no acute events overnight. -Echo 02/06/25: LVEF 60-65%. Grade I diastolic dysfunction. -EKG 02/05/25: Sinus tachycardia, rate 111 bpm, QTc 440 ms. Possible Left atrial enlargement, Inferior infarct, age undetermined. Anterolateral infarct (cited on or before 28-Dec-2022) -US Venous Doppler of bilateral LE 02/05/25: No sonographic evidence of DVT. -Liver US 02/05/25: Echogenic appearance of the liver parenchyma favoring fatty infiltration and/or underlying hepatic parenchymal disease. -Chest CTA 02/05/25: No pulmonary emboli. No pleural effusion, PNA noted. Intralobular septal thickening with intermixed bilateral groundglass densities suggestive of atelectasis. A component of mild interstitial pulmonary edema may also be present. Hepatic steatosis noted. -CXR 02/05/25: No acute findings. -Labs show D-dimer 2350. -Tickborne illness panel and respiratory panel positive for EBV IgG Ag. -Hep B DNA results pending. -PE/DVT ruled out (see diagnostic findings section) -Volume depletion ruled out; positive fluid balance of 7L since admission -Hyperthyroidism ruled out; TSH on 02/05/25 WNL at 2.9 -POTS unlikely; patient exercises at [employer] 3-4 times per week and does housework/yard work without issues. Denies prior issues with orthostasis. -Anemia ruled out; Hgb borderline low at 11.8, Hct 36.4. Although no iron panel available, labs 02/08/25 show MCV WNL at 90.3, Plt WNL at 239,000 thus iron deficiency unlikely. -Pulmonary disease cause? Pulm has been consulted. -Infectious etiology? Patient will complete her course of Doxycycline on Tuesday02/11/25. ID has been consulted. -Patient has h/o generalized anxiety disorder. 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 Consider medical management. -Fever has resolved; temp today 36.9 C. -Maintain hydration. -Start Metoprolol succinate 12.5 BID for inappropriate sinus tachycardia. -Recommend outpatient cardiology follow-up. Case discussed with nuclear engineer Dr. Munroe. Further recommendations pending his evaluation and assessment. I spent a total of 65 minutes on the date of service in preparation, delivery, and documentation of the care provided to this patient, excluding any time spent in the performance of separately billed services. Korin Chin, SELVINC Department of Cardiology, [facility] This chart was completed in part utilizing Speech Voice Recognition Software. Grammatical errors, random word insertions, pronoun errors, and incomplete sentences are an occasional consequence of this system due to software limitations, ambient noise, and hardware issues. Any formal questions or concerns about the content, text, or information contained within the body of this dictation should be directly addressed to the provider for clarification. Supervising Physician Co-Signing Physician Notes I have personally performed a history and physical examination on the patient. I have reviewed the advance practitioner's documentation, and I agree with, and take responsibility for the plan of care. 69-year-old female present with fever of unknown origin. Viral studies, tickborne illness panel, and cultures negative. History of psoriatic arthritis. Empirically treated with doxycycline. No recurrent fevers over the past few days. Elevated resting heart rate and elevated heart rates during activities. Telemetry reveals sinus rhythm and sinus tachycardia. There appears to be a postural component to her heart rate. She does not appear hypovolemic having received nearly 7 L of IV hydration during hospitalization. CT of CTA of the ch est negative for PE, normal thyroid function studies noted. Recommend addition of low-dose beta-talon for symptomatic treatment of inappropriate sinus tachycardia. Continue telemetry monitoring. Recommend avoid caffeine intake and maintain adequate hydration. I spent a total of 35 minutes on the date of service in preparation, delivery, and documentation of the care provided to this patient, excluding any time spent in the performance of separately billed services. Rhett Munroe DO, [facility] History of Present Illness Reason for Consultation: Tachycardia Requesting Physician: Alan forrestist Attending Physician: Loc Damon MD History of Present Illness Patient is a 78 yo female with medical history that includes HLD, psoriatic arthritis, anxiety, h/o positive FELISA, and Raynaud syndrome. Patient presented to the ER on 02/05/2025 with dyspnea on exertion. Patient was seen at [facility] ER about 2 weeks ago for suspected tickborne illness and prescribed prophylactic Doxycycline. Due to little to no improvement in her symptoms and new tachycardia and dyspnea with minimal exertion. Cardiology services requested for assessment and recommendations. Hospital records reviewed since admission: -Echo 02/06/25: LVEF 60-65%. Grade I diastolic dysfunction. -EKG 02/05/25: Sinus tachycardia, rate 111 bpm, QTc 440 ms. Possible Left atrial enlargement, Inferior infarct, age undetermined. Anterolateral infarct (cited on or before 28-Dec-2022) -US Venous Doppler of bilateral LE 02/05/25: No sonographic evidence of DVT. -Liver US 02/05/25: Echogenic appearance of the liver parenchyma favoring fatty infiltration and/or underlying hepatic parenchymal disease. -Chest CTA 02/05/25: No pulmonary emboli. No pleural effusion, PNA noted. Int ralobular septal thickening with intermixed bilateral groundglass densities suggestive of atelectasis. A component of mild interstitial pulmonary edema may also be present. Hepatic steatosis noted. -CXR 02/05/25: No acute findings. -Labs show D-dimer 2350. Tickborne illness panel and resp panel positive for EBV IgG Ag. Hep B DNA results pending. At time of evaluation today, patient is resting in bed, in no acute distress. States she came to the ER at [facility] on 02/01/25 due to fever of 101.6, chills, and headache that started on 01/31/25. States she received 3L IV fluids and was discharged on prophylactic oral Doxycycline for possible tick bite. Workup showed mild transaminitis but was otherwise unremarkable at that time. She states she returned to the ER on 02/05/25 when her HR increased to 140 bpm after getting out of the shower and her fever (100F) remained. She states she attends exercise classes at the [facility] several times per week, and has no issues with orthostasis. She denies chest pain, palpitations, SOB at rest, dizziness, lightheadedness, fever, chills, abdominal pain, hematuria, melena, hematochezia, or any other issues. 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 Telemetry reviewed: Sinus tachy, HR 100s, 120-135 bpm at 11am. No arrhythmias, no acute events overnight Allergies Allergy/AdvReac Type Severity Reaction Status Date / Time aspirin Allergy Severe Anaphylaxis Verified 01/29/25 13:38 homosalate Allergy FACIAL Verified 01/29/25 13:38 SWELLING NSAIDS (Non-Steroidal Allergy HX GASTRIC Verified 01/29/25 13:38 Anti-Inflamma BYPASS-ADVISED AGAINST TAKING Penicillins Allergy Rash Verified 01/29/25 13:38 thimerosal Allergy CONTACT Verified 01/29/25 13:38 DERMATITIS Home Medications Medication Instructions Recorded Confirmed Type Vitamin D3 1 cap PO HS 12/24/22 02/05/25 History cetirizine 10 mg capsule 10 mg PO QAM 12/24/22 02/05/25 History folic acid 1 mg tablet 1 mg PO HS 12/24/22 02/05/25 History rosuvastatin 10 mg tablet 10 mg PO HS 12/24/22 02/05/25 History apremilast 30 mg tablet (Otezla) 30 mg PO BID 06/18/24 02/05/25 History methotrexate sodium 2.5 mg tablet 15 mg PO .WEEKLY 02/01/25 02/05/25 History doxycycline hyclate 100 mg tablet 100 mg PO BID 02/05/25 02/05/25 History Patient History Medical History Raynaud phenomenon History of anesthesia problem hypotension with colonoscopy attributed to propofol per pt, denies additional issues with subsequent surgeries/propofol administration History of GI bleed 2017>FOUND TO BE FROM POLYPS FOUND DURING COLONOSCOPY Hx of seasonal allergies Hyperlipidemia Non-specific colitis HX Hx of colonic polyps Anxiety Psoriatic arthritis Osteoporosis Surgical History S/P panniculectomy History of lumbar laminectomy Hx of laparoscopy EXPLORATORY Hx laparoscopic cholecystectomy History of open reduction and internal fixation (ORIF) procedure RT. WRIST Personal hx of gastric bypass History of esophagogastroduodenoscopy (EGD) Hx of colonoscopy Social History Smoking Status: Former smoker Tobacco Type: Cigarettes Cigarettes Per Day: .5 pack; Second Hand Exposure: Yes (HX); Do You Dip or Chew Tobacco: No; Hx Alcohol Use: Yes Alcohol type: wine Hx Substance Use: Yes Last Used Substance Other:: 02/04 HS Preferred Language: Cypriot Communication Ability: Effective Pocket Marker Required: No Beliefs That Will Affect Care: None Current Living Situation: Spouse Current Living Situation Comment: home with . patient is primary caregiver for self and . Feels Safe at Home: Yes Assistive Devices: None Review of Systems Review of Systems: All systems reviewed & are unremarkable except as noted in HPI & below Physical Exam Constitutional: WD/WN, vitals as above no acute distress Neck: normal visual inspection and trachea midline Respiratory: able to speak in complete sentences (slightly SOB at start of conversation); no respiratory distress and does not use accessory muscles A uscultation: lungs clear to auscultation bilaterally Cardiovascular: Rate/Rhythm: regular rhythm and + tachycardic Vessels: no JVD Extremities: no edema Skin: no rashes, warm and dry Psychiatric: A+Ox3, euthymic affect Results & Data Vital Signs (Past 12 Hours) Vital Signs Temp Pulse Resp BP Pulse Ox O2 Del Method 02/08/25 11:13 36.7 C 105 H 18 110/75 94 Room Air 02/08/25 07:50 37 C 114 H 18 106/71 94 Room Air 02/08/25 05:29 37.7 C H 108 H 14 106/71 91 Room Air Laboratory Results CBC 02/08/25 Range/Units 06:05 WBC 6.13 (4.8-10.8) K/ul RBC 4.03 L (4.20-5.40) M/uL Hgb 11.8 L (12.0-16.0) g/dl Hct 36.4 L (37.0-47.0) % Plt Count 239 (130-400) K/uL Comprehensive Metabolic Panel 02/08/25 Range/Units 06:05 Sodium 135 L (136-145) mmol/L Potassium 4.5 (3.5-5.1) mmol/L Chloride 106 (98-107) mmol/L Carbon Dioxide 24 (21-32) mmol/L BUN 6 (6-23) mg/dl Creatinine 0.58 L (0.6-1.2) mg/dl Glucose 86 (70-99(Fasting)) mg/dl Calcium 8.2 L (8.6-10.3) mg/dl Intake and Output 02/07/25 02/08/25 02/08/25 22:59 06:59 14:59 Intake Total 995 / 1345 1000 / 1000 Balance 995 / 1345 1000 / 1000 Intake: IV 995 / 995 1000 / 1000 Nss + 20Meq KCl 20 meq In 1,000 995 / 995 1000 / 1000 ml @ 75 mls/hr IV .[id number] [facility] Rx#:[id number] Diagnostic Findings Echo 02/06/25: LVEF 60-65% LV systolic function normal. Mild concentric LV hypertrophy. Grade I diastolic dysfunction [place] aortic valve Mild aortic valve sclerosis without significant AV stenosis. EKG 02/05/25: Sinus tachycardia, rate 111 bpm, QTc 440 ms. Possible left atrial enlargement. Inferior infarct, age undetermined Anterolateral infarct (cited on or before 28-Dec-2022) US Venous Doppler bilateral LE 02/05/25: No sonographic evidence of deep venous thrombosis in the bilateral lower extremities. Liver US 02/05/25: Echogenic appearance of the liver parenchyma favoring fatty infiltration and/or underlying hepatic parenchymal disease. Chest CTA 02/05/25: 1. No pulmonary emboli. 2. No lobar airspace consolidation typical for pneumonia. No pleural effusion. 3. Intralobular septal thickening with intermixed bilateral groundglass densities suggestive of atelectasis. A component of mild interstitial pulmonary edema may also be present. 4. Hepatic steatosis CXR 02/05/25: No acute findings. Medications Administered Current Inpatient Medications Acetaminophen (Acetaminophen 325 Mg Tab) 650 mg PO Q4H PRN PRN Reason: Pain or Fever Stop: 03/07/25 18:05 Cetirizine HCl (Cetirizine Hcl 10 Mg Tablet) 10 mg PO QAM [facility] Stop: 03/08/25 08:59 Last Admin: 02/08/25 09:17 Dose: 10 mg Doxycycline Hyclate (Doxycycline Hyclate 100 Mg Cap) 100 mg PO BID LES Stop: 02/11/25 20:59 Last Admin: 02/08/25 09:17 Dose: 100 mg Folic Acid (Folic Acid 1 Mg Tab) 1 mg PO HS LES Stop: 03/07/25 20:59 Last Admin: 02/07/25 20:58 Dose: 1 mg Heparin Sodium (Porcine) (Heparin Sod 5,000 Unit/0.5 Ml Vial) 7,500 units SQ Q12 LES Stop: 03/07/25 20:59 Last Admin: 02/08/25 09:18 Dose: Not Given Ipratropium [place] (Ipratropium [place] Neb Soln 0.02% 0.5mg/2.5ml Vial) 0.5 mg NEB TIDR PRN PRN Reason: Shortness Of Breath Or Wheezing Stop: 03/08/25 12:59 Levalbuterol HCl (Levalbuterol 1.25 Mg/3 Ml Neb) 1.25 mg NEB TIDR PRN PRN Reason: Shortness Of Breath Or Wheezing Stop: 03/08/25 12:59 Lorazepam (Lorazepam 0.5 Mg Tab) 0.5 mg PO TID PRN PRN Reason: Anxiety Stop: 03/08/25 02:01 Last Admin: 02/07/25 22:53 Dose: 0.5 mg Magnesium Hydroxide (Magnesium Hydroxide Susp 30 Ml Udc) 30 ml PO Q12H PRN PRN Reason: Constipation Stop: 03/07/25 18:05 Melatonin (Melatonin 3 Mg Tab) 6 mg PO HS PRN PRN Reason: Sleep Stop: 03/07/25 21:19 Ondansetron HCl (Ondansetron Inj 2 Mg/Ml 2 Ml Vial) 4 mg IV Q6H PRN PRN Reason: Nausea Stop: 03/07/25 18:05 Last Admin: 02/08/25 11:41 Dose: 4 mg Polyethylene Glycol (Polyethylene (Miralax) 17 Gm Pack) 17 gm PO DAILY PRN PRN Reason: Constipation Stop: 03/07/25 18:05 Rosuvastatin Calcium (Rosuvastatin Calcium 10 Mg Tab) 10 mg PO HS LES Stop: 03/07/25 20:59 Last Admin: 02/07/25 20:58 Dose: 10 mg Vitamin D (Cholecalciferol 25 Mcg (1000 Units) Tab) 25 mcg PO HS LES Stop: 03/07/25 20:59 Last Admin: 02/07/25 20:58 Dose: 25 mcg (4) Fever Fever type: unspecified Qualified Code(s): R50.9 - Fever, unspecified
[2025-02-08] MEDS: METOPROLOL TARTRATE 25 MG TAB PO SCH (17:25)
--- NOTE | 2025-02-08 17:29 | XRay Report ---
Chest radiograph, one view History: Chest pain Comparison: February 05, 2025 Findings: Single AP view of the chest performed. No focal consolidation or pleural effusion. No pneumothorax. The cardiomediastinal silhouette is within normal limits. Normal pulmonary vascularity. No evidence for lymphadenopathy. No visualized bony or soft tissue abnormality. Impression: Normal chest radiograph Electronically signed by Antony Rosen 02-08-2025 5:28 PM
[2025-02-09 09:47] LABS: Bilirubin Direct 0.1 mg/dl (0-0.2); Bilirubin,Total 0.5 mg/dl (0.2-1.0); Total Protein 6.7 gm/dl (6.0-8.3)
--- NOTE | 2025-02-09 09:53 | Discharge Summary ---
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 Previously seen in ED on 02/01/25 for the above complaints. Other than a mild transaminitis her workup was grossly unremarkable. Tickborne illness panel at that time was negative except for A. phagocytophilum DNA testing and Babesia microti DNA PCR testing Patient was empirically started on oral doxycycline upon discharge from the ED at that time pending those DNA/PCR results. #Fever of Unknown Origin, possible Tickborne Illness #Fatigue Tickborne Illness DNA panel: negative Hepatitis confirmatory panel: negative Peripheral smear: lymphocytosis with frequent large granular lymphocytes, favors reactive etiology UA negative CK WNL TSH WNL Procal, lactate WNL Blood culture: negative Monospot: past infection Continue doxy for now pending full tickborne w/u results 02/06 unclear etiology at this point no clear source of infection afebrile since admission, no leukocytosis 02/08 feels improved overall except of episodes of symptomatic tachycardia complete Doxycyline PO BID course, total 10 days 02/09 feeling better overall, afebrile HR improving, 100-110s complete Doxycyline PO BID course, total 10 days #Dyspnea on minimal exertion, Bilateral groundglass opacities #Chest pain --> mostly with exertion and deep inspiration D-dimer 2350 Chest CTA: no PE or PNA, atelectasis Trop x 1 negative BNP 20 Check BLE venous doppler US: negative 02/06 echo: EF 60-65%, Gr1 Diastolic dysfunction patient appears to be on the dry side actually CT chest: no acute PE, (+) bilateral diffuse groundglass opacities possibly from viral illness? underlying interstitial lung disease? methotrexate toxicity? has past history of smoking worked on setting up a pool a week ago -- (+) conversational dyspnea on exam -- trial of Xopenex/Atrovent nebs TID incentive spirometer Pulmonology consulted 02/07 Pulm consulted, appreciate the recommendations CT findings mild, will not explain patient's symptomatology, dyspnea possibly from inappropriate sinus tachycardia? #Transaminitis AST 105, ALT 124 Previously AST 67 and ALT 90 on 02/01 T. bili, alk phos WNL Chest CTA: hepatic steatosis Check liver US:Echogenic appearance of the liver parenchyma favoring fatty infiltration and/or underlying hepatic parenchymal disease. -- LFTs improving Hepatitis panel: negative GI consulted -- repeat LFTs upon ff up with PCP further evaluation and management of Fatty Live disease as outpatient # Inappropriate Sinus Tachycardia Pt reports HR trend up into the upper 100s w/ minimal exertion EKG reviewed --> sinus tach, possible LA enlargement -- acute PE ruled out echo EF 60-65%, Gr 1 diastolic dysfunction Hg 10.7--> 11.8 TSH, cortisol normal -- IV fluids ordered for possible volume given -- patient still having persistent tachycardia HR 130s while in the bathroom today, symptomatic -- Swinging Cut Off Saw Operator Dr. Mata consulted started on Metoprolol tartrate 12.5mg po BID ff up with Cardiology in 2-4 weeks #Hypotension -- cortisol normal ACTH 10 -- patient appears dry IV fluids ordered -- resolved #Abnormal CT Findings Mild coronary artery calcifications 5 mm fissural nodule on image 127 series 4 within the right midlung, likely a lymph node. -- Further work up, management, and ff up as outpatient #Rheumatoid arthritis -- may resume Otezla, hold Methotrexate until further advice by Screen Printing Machine Loader Unloader F/w Teaer rheum - MELI Jain #HLD -- Continue statin DVT Prophylaxis: SCDs/TEDs, heparin PCP: Kristopher Woody MD Disposition: d/c home ff up with PCP in 1 week ff up with Swinging Cut Off Saw Operator in 2-4 weeks plan of care discussed with patient in detail and at length all questions answered she is understanding, agreeable, comfortable with the plan of care Notes For Next Care Provider Medication Changes From Visit Metoprolol tartrate 12.5mg po BID Admission HPI Per Admitting Provider Patient is a 69-year-old female with past medical history significant for HLD, Raynaud's phenomenon, vitamin D deficiency, history of recurrent UTIs, urinary incontinence but H-related osteoporosis, psoriatic arthritis, history of GI bleed, depression/anxiety, history of thyroid nodule, history of tobacco use and other problems as below who presented to the ED for evaluation of multiple complaints including fatigue, intermittent fevers with rigors, tachycardia, intermittent headaches and LÓPEZ. Previously seen and evaluated in [place] ED on 02/01/25 for the above complaints as well. Other than a mild transaminitis her workup was grossly unremarkable. CXR at the time did raise concern for a raised right hemidiaphragm obscuring the right costophrenic recess however this was thought to be in the setting of atelectasis. Tickborne illness panel at that time was negative except for A. phagocytophilum DNA testing and Babesia microti DNA PCR testing, both of which are still pending as of today. Patient was empirically started on oral doxycycline upon discharge from the ED at that time pending her additional DNA and PCR testing results. Patient admits to minimal if any improvement in her symptoms since being on the doxycycline. She mentions that she started with periods of fatigue and "feeling rundown" earlier this month around the . Since then, she has also experienced bouts of tachycardia with minimal exertion, intermittent headaches, intermittent fevers (Tmax 101.6F orally - last recorded fever on 02/01) with chills/rigors, intermittent myalgias, SOB upon exertion and poor appetite. She mentions that she was cooking dinner last evening when she suddenly started to develop SOB, midsternal chest pain and diaphoresis. This resolved with rest. She does endorse some midsternal chest pain upon inspiration but otherwise has had no further bouts of diaphoresis associated with it. No cigarette use. Nightly medical marijuana use - 5mg gummies (usually takes half) to help her sleep. Occasional alcohol use. On methotrexate and Otezla for RA. Last dose of methotrexate was given on 01/27/25. Follows with MELI Jain - [facility]. [facility] in the [facility]. No definitive tick bite that she can recall. Denies any sore throat or cough. History of recurrent UTIs. Urine appears dark in coloration but no dysuria or hematuria. Admission Exam Per Admitting Provider GENERAL: Alert and oriented x3. NAD, on RA. HEENT: No pallor, no icterus. Pupils equal, round and reactive to light. Oral mucosa moist. NECK: No JVD, no neck masses. HEART: S1 and S2 heard. Regular rate and rhythm. No murmur, no gallop. RESPIRATORY SYSTEM: Normal AP diameter. No accessory muscle use. No wheezing, no crackles. ABDOMEN: Soft, bowel sounds present, nontender, no distention. CENTRAL NERVOUS SYSTEM: No facial droop. Speech is clear. Obeys simple commands. Moves extremities. EXTREMITIES: No edema, no erythema seen. Discharge Exam General- oriented x 3, not in distress, speaks in sentences with no effort or accessory muscle use Eyes- anicteric Neck- no JVD Lungs- clear breath sounds bilaterally, no rales/wheezes Heart- mildly tachycardic rate, regular rhythm; no murmurs Abdomen- normal bowel sounds, nondistended, soft, nontender Extremities- no pretibial edema, no calf tenderness Neuro- alert, oriented x 3; no gross focal neurologic deficits Skin- warm & dry Updated Medication List Medication Instructions Recorded Confirmed Type Vitamin D3 1 cap PO HS 12/24/22 02/05/25 History cetirizine 10 mg capsule 10 mg PO QA 12/24/22 02/05/25 History folic acid 1 mg tablet 1 mg PO HS 12/24/22 02/05/25 History rosuvastatin 10 mg tablet 10 mg PO HS 12/24/22 02/05/25 History apremilast 30 mg tablet (Otezla) 30 mg PO BID 06/18/24 02/05/25 History methotrexate sodium 2.5 mg tablet 15 mg PO .WEEKLY 02/01/25 02/05/25 History doxycycline hyclate 100 mg tablet 100 mg PO BID 02/05/25 02/05/25 History metoprolol tartrate 25 mg tablet 12.5 mg (1/2 x 25 mg) PO BID 30 02/09/25 Rx days #30 tabs Hospital Stay Data Consultations 02/05/25 14:35 ED Decision to Admit Stat 02/05/25 18:12 Consult Gastroenterology Routine 02/06/25 08:22 Consult Infectious Diseases Routine 02/06/25 12:29 Consult Pulmonology Routine 02/08/25 13:31 Consult Cardiology Routine Diagnostic Imagining Performed Laboratory Results WBC 6.13 K/ul (4.8-10.8) 02/08/25 06:05 RBC 4.03 M/uL (4.20-5.40) L 02/08/25 06:05 Hgb 11.8 g/dl (12.0-16.0) L 02/08/25 06:05 Hct 36.4 % (37.0-47.0) L 02/08/25 06:05 MCV 90.3 fL (80.0-100.0) 02/08/25 06:05 MCH 29.3 pg (25.0-34.0) 02/08/25 06:05 MCHC 32.4 g/dL (32.0-36.0) 02/08/25 06:05 RDW Std Deviation 46.6 fL (36.4-46.3) H 02/08/25 06:05 RDW Coeff of Agnes 14.0 % (11.5-14.5) 02/08/25 06:05 Plt Count 239 K/uL (130-400) 02/08/25 06:05 MPV 10.9 fL (9.4-12.4) 02/08/25 06:05 Neutrophils % (Manual) 47 % 02/08/25 06:05 Lymphocytes % (Manual) 20 % 02/08/25 06:05 Reactive Lymphs % (Man) 25 % 02/08/25 06:05 Monocytes % (Manual) 7 % 02/08/25 06:05 Eosinophils % (Manual) 1 % 02/08/25 06:05 Basophils % (Manual) 1 % 02/07/25 09:23 Neutrophils # (Manual) 2.88 K/uL (1.40-6.50) 02/08/25 06:05 Total Absolute Neuts 2.88 K/uL (1.4-6.5) 02/08/25 06:05 Lymphocytes # (Manual) 1.23 K/uL (1.2-3.4) 02/08/25 06:05 Reactive Lymphs # 1.53 K/uL 02/08/25 06:05 Total Abs Lymphocytes 2.76 K/uL (1.2-3.4) 02/08/25 06:05 Monocytes # (Manual) 0.43 K/uL (0.11-0.59) 02/08/25 06:05 Eosinophils # (Manual) 0.06 K/uL (0-0.50) 02/08/25 06:05 Basophils # (Manual) 0.06 K/uL (0-0.2) 02/07/25 09:23 Blood Smear Review 02/05/25 12:18 Toxic Vacuolation 1+ 02/05/25 12:18 RBC Morphology Unremarkable 02/08/25 06:05 PT 11.5 Seconds (9.0-12.0) 02/05/25 12:18 INR 1.1 (0.9-1.1) 02/05/25 12:18 D-Dimer 2350 ug/L FEU (0-500) H* 02/05/25 12:18 Sodium 135 mmol/L (136-145) L 02/08/25 06:05 Potassium 4.5 mmol/L (3.5-5.1) 02/08/25 06:05 Chloride 106 mmol/L (98-107) 02/08/25 06:05 Carbon Dioxide 24 mmol/L (21-32) 02/08/25 06:05 Anion Gap 5 (3-11) 02/08/25 06:05 BUN 6 mg/dl (6-23) 02/08/25 06:05 Creatinine 0.58 mg/dl (0.6-1.2) L 02/08/25 06:05 Est Cr Clr Drug Dosing 87.6 ml/min 02/08/25 06:05 eGFR 99.12 02/08/25 06:05 BUN/Creatinine Ratio 10.3 (10-20) 02/08/25 06:05 Glucose 86 mg/dl (70-99(Fasting)) 02/08/25 06:05 Lactate 1.8 mmol/L (0.4-2.0) 02/05/25 12:30 Calcium 8.2 mg/dl (8.6-10.3) L 02/08/25 06:05 Phosphorus 2.4 mg/dl (2.5-4.9) L 02/07/25 09:23 Magnesium 1.7 mg/dl (1.7-2.4) 02/07/25 09:23 Total Bilirubin 0.5 mg/dl (0.2-1.0) 02/09/25 08:15 Direct Bilirubin 0.1 mg/dl (0-0.2) 02/09/25 08:15 AST 78 U/L (13-39) H 02/09/25 08:15 ALT 70 U/L (7-52) H 02/09/25 08:15 Alkaline Phosphatase 70 U/L (34-104) 02/09/25 08:15 Total Creatine Kinase 27 U/L (26-192) 02/05/25 12:18 Troponin I High Sens 4.1 pg/ml (0-14) 02/05/25 12:18 B-Natriuretic Peptide 20 pg/ml (0-100) 02/05/25 12:18 Total Protein 6.7 gm/dl (6.0-8.3) 02/09/25 08:15 Albumin 3.3 gm/dl (3.4-5.0) L 02/09/25 08:15 Globulin 2.8 gm/dl (2.5-4.0) 02/06/25 07:05 Albumin/Globulin Ratio 1.2 (0.9-2) 02/06/25 07:05 Procalcitonin 0.26 ng/ml (0-0.5) 02/05/25 12:18 TSH 2.915 uIu/ml (0.300-4.500) 02/05/25 12:18 Cortisol AM Sample 9.70 mcg/dl (6.2-22.6) 02/06/25 07:05 ACTH 10 pg/mL (6-50) 02/06/25 07:05 Urine Color Yellow 02/05/25 15:20 Urine Appearance Clear (Clear) 02/05/25 15:20 Urine pH 6.5 (4.5-7.5) 02/05/25 15:20 Ur Specific [place] > 1.045 (1.000-1.030) H 02/05/25 15:20 Urine Protein Trace (Negative) H 02/05/25 15:20 Urine Glucose (UA) Negative (Negative) 02/05/25 15:20 Urine Ketones Negative (Negative) 02/05/25 15:20 Urine Blood Negative (Negative) 02/05/25 15:20 Urine Nitrite Negative (Negative) 02/05/25 15:20 Urine Bilirubin Negative (Negative) 02/05/25 15:20 Urine Urobilinogen Negative (Negative) 02/05/25 15:20 Ur Leukocyte Esterase Negative (Negative) 02/05/25 15:20 Urine WBC (Auto) 0-5 /hpf (0-5) 02/05/25 15:20 Urine RBC (Auto) 0-2 /hpf (0-2) 02/05/25 15:20 U Hyaline Cast (Auto) 0-2 /lpf (0-2) 02/05/25 15:20 U Epithel Cells (Auto) 0-2 /hpf (0-2) 02/05/25 15:20 Urine Bacteria (Auto) None Seen (None Seen) 02/05/25 15:20 Urine Comment 02/05/25 15:20 Acetaminophen < 3 ug/ml (10-30) L 02/05/25 14:38 Anaplasma Smear See Comment 02/05/25 12:18 Babesia Smear See Comment 02/05/25 12:18 Lyme Disease Screen Negative (Negative) 02/05/25 12:18 EBV Capsid Ag IgG Ab Positive 02/05/25 17:08 EBV Caps Ag IgG Sig Str 629.0 U/mL (< 18.0) 02/05/25 17:08 EBV Capsid Ag IgM Ab Negative 02/05/25 17:08 EBV Caps Ag IgM Sig Str 28.0 U/mL (< 36.0) 02/05/25 17:08 EBV Early Antigen IgG Positive (Negative) A 02/05/25 17:08 EBV EA Signal Strength > 150.0 U/mL (< 9.0) 02/05/25 17:08 EBV Nuclear Antigen Ab Positive 02/05/25 17:08 EBV Nucl Ag IgG Sig Str > 600.0 U/mL (< 18.0) 02/05/25 17:08 EBV Interpretation See Comment 02/05/25 17:08 Hepatitis A IgM Ab NON-REACTIVE (NON-REACTIVE) 02/05/25 14:38 Hep Bs Antigen Prelim Positive (Negative) A 02/05/25 12:18 Hep Bs Ag Confirmation NON-REACTIVE (NON-REACTIVE) 02/05/25 12:18 Hep B Core IgM Ab NON-REACTIVE (NON-REACTIVE) 02/05/25 14:38 Hep B DNA Qnt log IU/mL NOT DETECTED Log IU/mL (NOT DETECTED) 02/06/25 11:13 Hep B DNA (IU/mL) NOT DETECTED IU/mL (NOT DETECTED) 02/06/25 11:13 Hepatitis C Antibody Negative (Negative) 02/05/25 12:18 Monoscreen Negative (Negative) 02/05/25 17:08 Impressions Chest CTA 02/05/25 13:27 CT angio chest PE protocol CT DOSE: 775.91 mGy.cm HISTORY: 69 years-old Female with PE. Acute shortness of breath TECHNIQUE: Multiple CTA images of the chest were obtained after the intravenous administration of 112 ml Optiray. Coronal and sagittal MIPS were obtained from the axial data set and were submitted for review. All measurements were obtained according to NASCET criteria. A dose lowering technique was utilized adhering to the principles of ALARA. COMPARISON: Chest radiograph same day FINDINGS: CTA: The heart is upper limits of normal in size. Mild coronary artery calcificat ions. No pericardial effusion. No thoracic aortic aneurysm or dissection. No pulmonary emboli identified. CT CHEST: No thyroid nodule. Subcentimeter mediastinal and hilar lymph nodes are likely ph ysiologic. No pneumothorax, pleural effusion, or focal airspace consolidation. Intralobular septal thickening with mild intermixed groundglass densities. 5 mm fissural nodule on image 127 series 4 within the right midlung, likely a lymph node. Hepatic steatosis. Cholecystectomy with postoperative changes of the stomach. No acute fracture. IMPRESSION: 1. No pulmonary emboli. 2. No lobar airspace consolidation typical for pneumonia. No pleural effusion. 3. Intralobular septal thickening with intermixed bilateral groundglass densities suggestive of atelectasis. A component of mild interstitial pulmonary edema may also be present. 4. Hepatic steatosis. ACT 112: Negative or not required by law. The above report was generated using voice recognition software. It may contain grammatical, syntax or spelling errors. Electronically signed by: Chaz Villalobos M.D. 02/05/2025 2:13 PM Liver Ultrasound 02/05/25 15:46 EXAM: Ultrasound liver CLINICAL HISTORY: Elevated liver tests TECHNIQUE: Ultrasound interrogation of the abdomen was performed with grayscale and color Doppler imaging. PRIORS: None FINDINGS: The liver is normal in size and configuration. Echogenic liver parenchyma demonstrated. No intrahepatic ductal dilatation. No hepatic mass. Portal vein is patent. Gallbladder surgically absent. The common bile duct measures 9 mm, within normal limits allowing for cholecystectomy. No ascites Right kidney demonstrates no hydronephrosis. IMPRESSION: 1. Echogenic appearance of the liver parenchyma favoring fatty infiltration and/or underlying hepatic parenchymal disease. Electronically signed by Simona Peterson 02-05-2025 4:42 PM Venous Doppler Study 02/05/25 15:46 EXAMINATION: Ultrasound venous Doppler lower extremity bilateral CLINICAL HISTORY: Elevated D-dimer, dyspnea. PRIORS: None TECHNIQUE: Ultrasound interrogation of the deep venous structures was performed with grayscale, color Doppler, compression and augmentation. FINDINGS: The bilateral common femoral, superficial femoral, saphenous, popliteal and tibial veins demonstrate normal compressibility, frequency and augmentation. Right popliteal cyst measuring 1.7 x 2.6 x 6 cm. IMPRESSION: No sonographic evidence of deep venous thrombosis in the bilateral lower extremities. Electronically signed by Simona Peterson 02-05-2025 5:09 PM Chest X-Ray 02/08/25 16:34 Chest radiograph, one view History: Chest pain Comparison: February 05, 2025 Findings: Single AP view of the chest performed. No focal consolidation or pleural effusion. No pneumothorax. The cardiomediastinal silhouette is within normal limits. Normal pulmonary vascularity. No evidence for lymphadenopathy. No visualized bony or soft tissue abnormality. Impression: Normal chest radiograph Electronically signed by Antony Rosen 02-08-2025 5:28 PM 02/05/25 13:27 CT for pulmonary embolism PE [CT angio chest PE protocol] Stat 02/05/25 15:46 US liver Urgent US venous doppler LE BI Urgent Pending Results Patient Have Any Pending Studies at Discharge: No Discharge Instructions Given to Patient (Per Discharging Provider) PLEASE REFER TO YOUR NEW MEDICATION LIST AND FOLLOW INSTRUCTIONS CAREFULLY. YOUR NEW MEDICATIONS INCLUDE: Metoprolol- for heart rate control Drink plenty of fluids. Take a probiotic daily for at least 2 weeks. PLEASE CALL YOUR PRIMARY CARE PHYSICIAN OR RETURN TO THE ER IF WITH WORSENING OF SYMPTOMS, INCLUDING chest pain, shortness of breath, palpitations, dizziness, fever/chills, weakness, diarrhea, etc FOLLOW UP WITH PRIMARY CARE PHYSICIAN OUTLINED ABOVE. FOLLOW UP WITH AIRCRAFT LOADMASTER SUPERINTENDENT DR. MATA IN 2 WEEKS. CONTACT INFORMATION OUTLINED ABOVE. Total Time Total Time Spent Total Time Spent (In Minutes): 40 minutes
[2025-02-10 01:02] LABS: Babesia microti DNA Not Detected (Not Detected)
== END 2025-02-09 10:30 | disposition home or self-care (01) | DRG 864 ==
LOC: ED 11:48 → 2N 15:22 → SUATTDRO 15:22 → 2N 17:21